=== PATIENT | female | born 1995 | race Caucasian/White ===

== ENCOUNTER 2016-07-13 11:15 | Inpatient (IN) | payer OTHER, MEDICAID ==
[2016-07-13] MEDS: oxyCODONE 5 MG Tab (OWN SUPPLY) PO PRN (18:46)
[2016-07-13] MEDS ORDERED: Bisacodyl 10 MG Supp RECTAL PRN (19:08)
[2016-07-13] MEDS ORDERED: oxyCODONE 5 MG Tab PO ONE (19:32)
[2016-07-13] MEDS ORDERED: ARIPIPRAZOLE 15 MG PO SCH (20:00)
[2016-07-13] MEDS: Docusate Sodium 100 MG Cap PO SCH (20:01)
[2016-07-13] MEDS: WARFARIN 2 MG PO SCH (20:01)
[2016-07-13] MEDS: Sennosides 8.6 MG Tab PO SCH (20:01)
[2016-07-14] MEDS: oxyCODONE 5 MG Tab (OWN SUPPLY) PO PRN ×2 (05:06→23:16)
[2016-07-14] MEDS: Sennosides 8.6 MG Tab PO SCH ×2 (08:55→20:14)
[2016-07-14] MEDS: Sertraline 100 MG Tab (OWN SUPPLY) PO SCH (08:55)
[2016-07-14] MEDS: Docusate Sodium 100 MG Cap PO SCH ×2 (08:56→20:14)
[2016-07-14] MEDS: WARFARIN 2 MG PO SCH (20:14)
[2016-07-14] MEDS: ARIPIPRAZOLE PO SCH (20:14)
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
[2016-07-15 07:34] LABS: PROTHROMBIN TIME 22.4 SEC (10.0-12.8)
[2016-07-15] MEDS: Sennosides 8.6 MG Tab PO SCH ×2 (07:55→21:35)
[2016-07-15] MEDS: Sertraline 100 MG Tab (OWN SUPPLY) PO SCH (07:55)
[2016-07-15] MEDS: Docusate Sodium 100 MG Cap PO SCH ×2 (07:55→21:35)
--- NOTE | 2016-07-15 09:01 | PCM.SN ---
- Free Text/Narrative Note: INR therapeutic, continue the same dose recheck Tuesday. She wanted to go to her cousins but we recommend she watch it over the computer instead due to being on bed rest. She still continues to have pain around the traction pins dressing is now in place. Fransico got her X-ray yesterday and did order some more views that she already had this AM. I notified her she won't get her pin out until at least Tuesday and we are still working on setting up her traction.
[2016-07-15] MEDS: oxyCODONE 5 MG Tab (OWN SUPPLY) PO PRN ×2 (13:56→21:36)
[2016-07-15] MEDS: WARFARIN 2 MG PO SCH (21:34)
[2016-07-15] MEDS: ARIPIPRAZOLE PO SCH (21:35)
[2016-07-16] MEDS: oxyCODONE 5 MG Tab (OWN SUPPLY) PO PRN ×3 (09:18→21:30)
[2016-07-16] MEDS: Sertraline 100 MG Tab (OWN SUPPLY) PO SCH (09:19)
[2016-07-16] MEDS: Sennosides 8.6 MG Tab PO SCH ×2 (09:19→21:34)
[2016-07-16] MEDS: Docusate Sodium 100 MG Cap PO SCH ×2 (09:19→21:34)
[2016-07-16] MEDS: WARFARIN 2 MG PO SCH (21:30)
[2016-07-16] MEDS: ARIPIPRAZOLE PO SCH (21:30)
[2016-07-16] MEDS: Acetaminophen 325 MG Tab PO PRN (21:34)
[2016-07-17] MEDS: Sennosides 8.6 MG Tab PO SCH ×2 (08:46→19:37)
[2016-07-17] MEDS: Sertraline 100 MG Tab (OWN SUPPLY) PO SCH (08:47)
[2016-07-17] MEDS: Docusate Sodium 100 MG Cap PO SCH ×2 (08:47→19:37)
[2016-07-17] MEDS: oxyCODONE 5 MG Tab (OWN SUPPLY) PO PRN ×2 (14:21→19:36)
[2016-07-17] MEDS: WARFARIN 2 MG PO SCH (19:37)
[2016-07-17] MEDS: Acetaminophen 325 MG Tab PO PRN (19:37)
[2016-07-17] MEDS: ARIPIPRAZOLE PO SCH (19:37)
[2016-07-18] MEDS: Docusate Sodium 100 MG Cap PO SCH ×2 (07:54→20:19)
[2016-07-18] MEDS: Sennosides 8.6 MG Tab PO SCH ×2 (07:54→20:19)
[2016-07-18] MEDS: Sertraline 100 MG Tab (OWN SUPPLY) PO SCH (07:55)
[2016-07-18] MEDS: oxyCODONE 5 MG Tab (OWN SUPPLY) PO PRN ×2 (07:55→20:18)
[2016-07-18] MEDS: WARFARIN 2 MG PO SCH (20:18)
[2016-07-18] MEDS: Acetaminophen 325 MG Tab PO PRN (20:19)
[2016-07-18] MEDS: ARIPIPRAZOLE PO SCH (20:20)
[2016-07-19 07:29] LABS: BASOPHILS PERCENT AUTO 0.5 % (0.2-1.2); HEMATOCRIT 35.2 % (33.0-47.0); HEMOGLOBIN 11.2 g/dL (12.0-16.0); LYMPHOCYTES PERCENT AUTO 31.7 % (25.0-50.0); MEAN CORPUSCULAR HEMOGLOBIN 29.3 pg (26.0-32.0); MEAN CORPUSCULAR HGB CONC 31.8 g/dL (32.0-36.0); MEAN CORPUSCULAR VOLUME 92.1 fL (78.0-93.0); MONOCYTES PERCENT AUTO 7.1 % (2.0-11.0); NEUTROPHILS PERCENT AUTO 55.4 % (50.0-80.0); RDW CV 13.4 % (10.0-15.0); RED BLOOD CELL COUNT 3.82 x10^6/uL (4.00-5.50)
[2016-07-19 07:39] LABS: CHLORIDE,CL 104 mmol/L (98-107); CREATININE 0.7 mg/dL (0.55-1.02); EST CRCL DRUG DOSING (CG) 133.98 mL/min; ESTIMATED GFR > 60; GLUCOSE RANDOM 85 mg/dL (74-106)
[2016-07-19 07:41] LABS: INR 2.7 (2.0-3.5); PROTHROMBIN TIME 30.6 SEC (10.0-12.8)
[2016-07-19 07:54] LABS: EOSINOPHILS PERCENT AUTO 5.3 % (0.0-4.0)
[2016-07-19] MEDS: Sennosides 8.6 MG Tab PO SCH ×2 (09:12→21:00)
[2016-07-19] MEDS: Docusate Sodium 100 MG Cap PO SCH ×2 (09:12→21:00)
[2016-07-19] MEDS: Sertraline 100 MG Tab (OWN SUPPLY) PO SCH (09:13)
[2016-07-19] MEDS: oxyCODONE 5 MG Tab (OWN SUPPLY) PO PRN ×3 (09:14→20:55)
[2016-07-19] MEDS: Acetaminophen 325 MG Tab PO PRN ×2 (15:14→20:59)
[2016-07-19] MEDS: ARIPIPRAZOLE PO SCH (20:52)
[2016-07-19] MEDS: WARFARIN 2 MG PO SCH (21:01)
[2016-07-20] MEDS: Sertraline 100 MG Tab (OWN SUPPLY) PO SCH (08:30)
[2016-07-20] MEDS: Docusate Sodium 100 MG Cap PO SCH ×2 (08:30→20:10)
[2016-07-20] MEDS: Sennosides 8.6 MG Tab PO SCH ×2 (08:30→20:08)
[2016-07-20] MEDS: oxyCODONE 5 MG Tab (OWN SUPPLY) PO PRN ×2 (15:09→20:08)
[2016-07-20] MEDS: Acetaminophen 325 MG Tab PO PRN (20:07)
[2016-07-20] MEDS: WARFARIN 2 MG PO SCH (20:08)
[2016-07-20] MEDS: ARIPIPRAZOLE PO SCH (20:09)
[2016-07-21] MEDS: Acetaminophen 325 MG Tab PO PRN ×3 (04:00→20:53)
[2016-07-21] MEDS: oxyCODONE 5 MG Tab (OWN SUPPLY) PO PRN ×3 (04:00→20:52)
[2016-07-21] MEDS: Docusate Sodium 100 MG Cap PO SCH ×2 (11:45→20:54)
[2016-07-21] MEDS: Sennosides 8.6 MG Tab PO SCH ×2 (11:45→20:54)
[2016-07-21] MEDS: Sertraline 100 MG Tab (OWN SUPPLY) PO SCH (11:46)
[2016-07-21] MEDS: ARIPIPRAZOLE PO SCH (20:48)
[2016-07-21] MEDS: WARFARIN 2 MG PO SCH (20:49)
[2016-07-22] MEDS: Sennosides 8.6 MG Tab PO SCH ×2 (09:10→19:55)
[2016-07-22] MEDS: Docusate Sodium 100 MG Cap PO SCH ×2 (09:10→19:55)
[2016-07-22] MEDS: oxyCODONE 5 MG Tab (OWN SUPPLY) PO PRN (09:10)
[2016-07-22] MEDS: Sertraline 100 MG Tab (OWN SUPPLY) PO SCH (09:11)
[2016-07-22] MEDS: Acetaminophen 325 MG Tab PO PRN ×2 (09:12→19:55)
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
[2016-07-22] MEDS: WARFARIN 2 MG PO SCH (19:56)
[2016-07-22] MEDS: ARIPIPRAZOLE 10 MG PO SCH (19:58)
[2016-07-23] MEDS: oxyCODONE 5 MG Tab (OWN SUPPLY) PO PRN ×3 (02:55→20:33)
[2016-07-23] MEDS: Docusate Sodium 100 MG Cap PO SCH ×2 (08:19→20:30)
[2016-07-23] MEDS: Sennosides 8.6 MG Tab PO SCH ×2 (08:19→20:31)
[2016-07-23] MEDS: Sertraline 100 MG Tab (OWN SUPPLY) PO SCH (08:20)
[2016-07-23] MEDS: WARFARIN 2 MG PO SCH (20:32)
[2016-07-23] MEDS: Acetaminophen 325 MG Tab PO PRN (20:36)
[2016-07-23] MEDS: ARIPIPRAZOLE 10 MG PO SCH (20:37)
[2016-07-24] MEDS: Sertraline 100 MG Tab (OWN SUPPLY) PO SCH (07:50)
[2016-07-24] MEDS: Docusate Sodium 100 MG Cap PO SCH ×2 (07:50→19:54)
[2016-07-24] MEDS: Sennosides 8.6 MG Tab PO SCH ×2 (07:50→19:55)
[2016-07-24] MEDS: Acetaminophen 325 MG Tab PO PRN ×2 (12:56→18:53)
[2016-07-24] MEDS: oxyCODONE 5 MG Tab (OWN SUPPLY) PO PRN ×3 (12:56→21:14)
[2016-07-24] MEDS: WARFARIN 2 MG PO SCH (19:56)
[2016-07-24] MEDS: ARIPIPRAZOLE 10 MG PO SCH (19:59)
[2016-07-25] MEDS: Acetaminophen 500 MG Tab PO SCH ×4 (00:10→17:16)
[2016-07-25] MEDS: OXYCODONE 5 MG PO PRN ×3 (06:02→19:58)
[2016-07-25] MEDS: Sertraline 100 MG Tab (OWN SUPPLY) PO SCH (07:58)
[2016-07-25] MEDS: Docusate Sodium 100 MG Cap PO SCH ×2 (07:58→19:56)
[2016-07-25] MEDS: Sennosides 8.6 MG Tab PO SCH ×2 (07:58→19:55)
[2016-07-25] MEDS: ARIPIPRAZOLE 10 MG PO SCH (19:57)
[2016-07-25] MEDS: WARFARIN 2 MG PO SCH (19:59)
[2016-07-26] MEDS: Acetaminophen 500 MG Tab PO SCH ×5 (00:34→23:00)
[2016-07-26 06:47] LABS: BASOPHILS PERCENT AUTO 0.4 % (0.2-1.2); HEMATOCRIT 35.1 % (33.0-47.0); HEMOGLOBIN 11.6 g/dL (12.0-16.0); LYMPHOCYTES PERCENT AUTO 34.4 % (25.0-50.0); MEAN CORPUSCULAR HEMOGLOBIN 29.8 pg (26.0-32.0); MEAN CORPUSCULAR VOLUME 90.2 fL (78.0-93.0); MONOCYTES PERCENT AUTO 7.1 % (2.0-11.0); NEUTROPHILS PERCENT AUTO 51.6 % (50.0-80.0); RDW CV 13.4 % (10.0-15.0); RED BLOOD CELL COUNT 3.89 x10^6/uL (4.00-5.50)
[2016-07-26 06:52] LABS: INR 2.7 (2.0-3.5); PROTHROMBIN TIME 30.3 SEC (10.0-12.8)
[2016-07-26 07:04] LABS: EOSINOPHILS PERCENT AUTO 6.5 % (0.0-4.0)
[2016-07-26] MEDS: Docusate Sodium 100 MG Cap PO SCH ×2 (09:01→20:03)
[2016-07-26] MEDS: Sennosides 8.6 MG Tab PO SCH ×2 (09:01→20:03)
[2016-07-26] MEDS: OXYCODONE 5 MG PO PRN ×3 (09:02→22:59)
[2016-07-26] MEDS: Sertraline 100 MG Tab (OWN SUPPLY) PO SCH (09:02)
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
[2016-07-26] MEDS: ARIPIPRAZOLE 10 MG PO SCH (20:05)
[2016-07-26] MEDS: WARFARIN 2 MG PO SCH (20:06)
[2016-07-27] MEDS: Acetaminophen 500 MG Tab PO SCH ×3 (05:08→17:07)
[2016-07-27] MEDS: OXYCODONE 5 MG PO PRN ×3 (05:09→17:07)
[2016-07-27] MEDS: Sennosides 8.6 MG Tab PO SCH ×2 (08:04→20:40)
[2016-07-27] MEDS: Sertraline 100 MG Tab (OWN SUPPLY) PO SCH (08:04)
[2016-07-27] MEDS: Docusate Sodium 100 MG Cap PO SCH ×2 (08:04→20:40)
[2016-07-27] MEDS: ARIPIPRAZOLE 10 MG PO SCH (20:39)
[2016-07-27] MEDS: WARFARIN 2 MG PO SCH (20:40)
[2016-07-28] MEDS: Acetaminophen 500 MG Tab PO SCH ×4 (01:19→18:05)
[2016-07-28] MEDS: OXYCODONE 5 MG PO PRN ×3 (06:35→18:06)
[2016-07-28] MEDS: Sennosides 8.6 MG Tab PO SCH ×2 (08:06→20:27)
[2016-07-28] MEDS: Docusate Sodium 100 MG Cap PO SCH ×2 (08:06→20:26)
[2016-07-28] MEDS: Sertraline 100 MG Tab (OWN SUPPLY) PO SCH (08:07)
[2016-07-28] MEDS: ARIPIPRAZOLE 10 MG PO SCH (20:18)
[2016-07-28] MEDS: WARFARIN 2 MG PO SCH (20:19)
[2016-07-29] MEDS: Acetaminophen 500 MG Tab PO SCH ×4 (02:42→20:30)
[2016-07-29] MEDS: OXYCODONE 5 MG PO PRN ×3 (06:29→20:31)
[2016-07-29] MEDS: Sertraline 100 MG Tab (OWN SUPPLY) PO SCH (08:24)
[2016-07-29] MEDS: Docusate Sodium 100 MG Cap PO SCH ×2 (08:25→20:33)
[2016-07-29] MEDS: Sennosides 8.6 MG Tab PO SCH ×2 (08:25→20:32)
[2016-07-29] MEDS: ARIPIPRAZOLE 10 MG PO SCH (20:34)
[2016-07-29] MEDS: WARFARIN 2 MG PO SCH (20:34)
[2016-07-29] MEDS ORDERED: Ondansetron 4 MG Tab.DIS PO PRN (23:02)
[2016-07-30] MEDS: OXYCODONE 5 MG PO PRN ×4 (01:12→23:35)
[2016-07-30] MEDS: Acetaminophen 500 MG Tab PO SCH ×4 (01:16→17:54)
--- NOTE | 2016-07-30 08:42 | PCM.SN ---
- Free Text/Narrative Note: S: 21 yo female seen on swingbed. There were concerns of drainage on the lateral portion of the L knee where her pin is placed. The nurses have noticed this for several days and have been doing daily and prn cares and dressing changes. No drainage on the medial portion. Skin around the pin is not red or warm. There is some tenderness. O: There is minimal purulent drainage around the pin on the lateral portion of the knee. There is no erythema or warmth to the skin. Mild tenderness to palpation. Patient does not appear to be in severe pain during palpation. No active bleeding noted. There is no drainage, bleeding, erythema, warmth, or tenderness on the medial portion. A/P: Wound culture and gram stain today. Consider PO antibiotics pending the results of the culture. Continue dressing changes and wound care.
[2016-07-30] MEDS: Sertraline 100 MG Tab (OWN SUPPLY) PO SCH (09:57)
[2016-07-30] MEDS: Sennosides 8.6 MG Tab PO SCH ×2 (09:59→20:18)
[2016-07-30] MEDS: Docusate Sodium 100 MG Cap PO SCH ×2 (09:59→20:18)
[2016-07-30] MEDS: ARIPIPRAZOLE 10 MG PO SCH (20:20)
[2016-07-30] MEDS: WARFARIN 2 MG PO SCH (20:20)
[2016-07-31] MEDS: Acetaminophen 500 MG Tab PO SCH ×4 (01:24→18:10)
[2016-07-31] MEDS: OXYCODONE 5 MG PO PRN ×3 (06:25→20:41)
[2016-07-31] MEDS: Docusate Sodium 100 MG Cap PO SCH ×2 (09:37→20:40)
[2016-07-31] MEDS: Sennosides 8.6 MG Tab PO SCH ×2 (09:37→20:40)
[2016-07-31] MEDS: Sertraline 100 MG Tab (OWN SUPPLY) PO SCH (09:38)
[2016-07-31] MEDS ORDERED: Lidocaine 1% PF 2 ML SDV INJECT ONE (11:25)
[2016-07-31 12:12] LABS: BASOPHILS PERCENT AUTO 0.2 % (0.2-1.2); HEMATOCRIT 34.8 % (33.0-47.0); HEMOGLOBIN 11.5 g/dL (12.0-16.0); LYMPHOCYTES PERCENT AUTO 23.5 % (25.0-50.0); MEAN CORPUSCULAR HEMOGLOBIN 29.8 pg (26.0-32.0); MEAN CORPUSCULAR VOLUME 90.2 fL (78.0-93.0); MONOCYTES PERCENT AUTO 4.5 % (2.0-11.0); NEUTROPHILS PERCENT AUTO 66.1 % (50.0-80.0); RDW CV 13.4 % (10.0-15.0); RED BLOOD CELL COUNT 3.86 x10^6/uL (4.00-5.50)
[2016-07-31 12:24] LABS: EOSINOPHILS PERCENT AUTO 5.7 % (0.0-4.0)
[2016-07-31 12:27] LABS: INR 3.4 (2.0-3.5); PROTHROMBIN TIME 39.2 SEC (10.0-12.8)
[2016-07-31 12:33] LABS: A/G RATIO 0.71; ALBUMIN 2.9 g/dL (3.4-5.0); ALKALINE PHOSPHATASE 172 U/L (46-116); BILIRUBIN TOTAL 0.2 mg/dL (0.2-1.0); C-REACTIVE PROTEIN 1.1 mg/dL (<=0.9); CALCIUM 8.8 mg/dL (8.5-10.1); CHLORIDE,CL 103 mmol/L (98-107); CORRECTED CALCIUM 9.68 mg/dL (8.5-10.1); CREATININE 0.7 mg/dL (0.55-1.02); EST CRCL DRUG DOSING (CG) 133.98 mL/min; ESTIMATED GFR > 60; GLUCOSE RANDOM 109 mg/dL (74-106)
[2016-07-31] MEDS: ARIPIPRAZOLE 10 MG PO SCH (20:40)
--- NOTE | 2016-07-31 23:52 | PN ---
Progress Note for LESLY VAZQUEZ Date: 07/31/2016 Room #: VM.218 SUBJECTIVE: This is a 21-year-old, who began having some more left knee pain in the last 24 to 48 hours. She was assessed yesterday and did have a culture growing Staph aureus from her pin sites, which had more drainage. There is no surrounding redness or warmth, but she is icing her knee currently. The pain is over her kneecap area, it hurts to move it. She has been afebrile. She is very afraid of having any of fluid removed. Otherwise, she is not having any coughing. She had a bowel movement a couple of days ago. She states she got nauseous yesterday, but relates that to starting her menses. OBJECTIVE: Vital Signs: Her temperature is 95.9, pulse 80, blood pressure 116/80, respiratory rate 16, O2 93% on room air. General: She is in no acute distress. Heart: Regular rate and rhythm. S1, S2 without murmur. Lungs: Sounds are clear to auscultation bilaterally without crackles or wheezes. Abdomen: Positive bowel sounds. Soft and nontender. Extremities: Warm and dry. No edema. The pin sites were examined, there is some fibrous yellow drainage, they appeared to be closing in a little better with Xeroform dressing in place. Mental Status: Alert and oriented x3. The rest of her incision is well healed with no redness. Extremities: Her calves are nontender, non-swollen. LABORATORY DATA: Lab work today did show her INR up to 3.4, hemoglobin 11.5, white count normal at 8.2, platelets 13.4. Sodium 140, potassium 3.8, chloride 103, bicarb 28, BUN 12, creatinine 0.7, glucose 109. AST 13, alkaline phosphatase 172, CRP 1.1, mildly elevated, albumin is 2.9. ASSESSMENT AND PLAN: 1. Left acetabular fracture status post ORIF on 07/01/2016. She was nonweightbearing, to followup x-rays on 08/12. She will remain in traction. 2. Left knee pain. Difficult to tell if there is any effusion with her obesity. We did an x-ray today, which does show results pending. She is very hesitant to do a procedure arthrocentesis. Given the fact that her white count is normal and her sed rate improved, we will hold off for now. I will continue to monitor for any signs of infection. The Staph aureus in the wound culture potentially could be a contaminant as she has no signs of infection other than the pain. 3. Nausea. She attributes it to her menses. 4. Deep vein thrombosis prophylaxis, on Coumadin. I will hold the Coumadin tonight especially if she were to need any further procedures. We will repeat an INR next week as planned. We will discuss changing her Coumadin over to 5 mg dosing, but her medications is her own medications, so that is why we used 6 mg dose and taking half a pill. 5. Depression. She is on her Abilify, the plan patient will continue swing bed cares. We will continue to monitor for any signs of infection. MKA: 07/31/2016 13:30:47 MODL: 07/31/2016 23:20:21 /[id number]
[2016-08-01] MEDS: Acetaminophen 500 MG Tab PO SCH ×5 (00:37→23:36)
[2016-08-01] MEDS: Docusate Sodium 100 MG Cap PO SCH ×2 (08:45→20:50)
[2016-08-01] MEDS: Sennosides 8.6 MG Tab PO SCH ×2 (08:45→20:51)
[2016-08-01] MEDS: Sertraline 100 MG Tab (OWN SUPPLY) PO SCH (08:45)
[2016-08-01] MEDS: OXYCODONE 5 MG PO PRN ×3 (08:47→22:48)
[2016-08-01] MEDS: WARFARIN 2 MG PO SCH (20:50)
[2016-08-01] MEDS: ARIPIPRAZOLE 10 MG PO SCH (20:50)
[2016-08-02] MEDS: Acetaminophen 500 MG Tab PO SCH ×4 (06:16→23:59)
[2016-08-02] MEDS: Sennosides 8.6 MG Tab PO SCH ×2 (10:33→19:45)
[2016-08-02] MEDS: Docusate Sodium 100 MG Cap PO SCH ×2 (10:33→19:45)
[2016-08-02] MEDS: Sertraline 100 MG Tab (OWN SUPPLY) PO SCH (10:34)
[2016-08-02] MEDS: ARIPIPRAZOLE 10 MG PO SCH (19:45)
[2016-08-02] MEDS: WARFARIN 2 MG PO SCH (19:45)
[2016-08-03] MEDS: Acetaminophen 500 MG Tab PO SCH ×4 (06:13→23:05)
[2016-08-03] MEDS: Sennosides 8.6 MG Tab PO SCH ×2 (08:25→19:53)
[2016-08-03] MEDS: Sertraline 100 MG Tab (OWN SUPPLY) PO SCH (08:26)
[2016-08-03] MEDS: Docusate Sodium 100 MG Cap PO SCH ×2 (08:26→19:53)
[2016-08-03] MEDS: ARIPIPRAZOLE 10 MG PO SCH (19:53)
[2016-08-03] MEDS: OXYCODONE 5 MG PO PRN (19:54)
[2016-08-03] MEDS: WARFARIN 2 MG PO SCH (19:54)
[2016-08-04] MEDS: Acetaminophen 500 MG Tab PO SCH ×4 (06:10→23:37)
[2016-08-04] MEDS: Docusate Sodium 100 MG Cap PO SCH ×2 (08:56→20:21)
[2016-08-04] MEDS: Sennosides 8.6 MG Tab PO SCH ×2 (08:56→20:20)
[2016-08-04] MEDS: Sertraline 100 MG Tab (OWN SUPPLY) PO SCH (08:57)
[2016-08-04] MEDS: WARFARIN 2 MG PO SCH (20:21)
[2016-08-04] MEDS: ARIPIPRAZOLE 10 MG PO SCH (20:22)
[2016-08-05] MEDS: OXYCODONE 5 MG PO PRN ×2 (01:01→15:34)
[2016-08-05] MEDS: Acetaminophen 500 MG Tab PO SCH ×3 (05:03→17:55)
[2016-08-05] MEDS: Docusate Sodium 100 MG Cap PO SCH ×2 (09:06→20:15)
[2016-08-05] MEDS: Sennosides 8.6 MG Tab PO SCH ×2 (09:06→20:15)
[2016-08-05] MEDS: Sertraline 100 MG Tab (OWN SUPPLY) PO SCH (09:07)
[2016-08-05] MEDS: Mupirocin Oint 22 GM Tube TOP SCH (17:54)
[2016-08-05] MEDS ORDERED: WARFARIN 2 MG PO SCH (20:00)
[2016-08-05] MEDS: ARIPIPRAZOLE 10 MG PO SCH (20:16)
[2016-08-06] MEDS: Acetaminophen 500 MG Tab PO SCH ×4 (00:10→18:01)
[2016-08-06] MEDS: OXYCODONE 5 MG PO PRN ×2 (02:43→08:22)
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
[2016-08-06 06:39] LABS: BASOPHILS PERCENT AUTO 0.4 % (0.2-1.2); EOSINOPHILS PERCENT AUTO 4.3 % (0.0-4.0); HEMATOCRIT 36.6 % (33.0-47.0); HEMOGLOBIN 11.9 g/dL (12.0-16.0); LYMPHOCYTES PERCENT AUTO 35.6 % (25.0-50.0); MEAN CORPUSCULAR HEMOGLOBIN 28.9 pg (26.0-32.0); MEAN CORPUSCULAR HGB CONC 32.5 g/dL (32.0-36.0); MEAN CORPUSCULAR VOLUME 88.8 fL (78.0-93.0); MONOCYTES PERCENT AUTO 6.9 % (2.0-11.0); NEUTROPHILS PERCENT AUTO 52.8 % (50.0-80.0); RDW CV 13.6 % (10.0-15.0); RED BLOOD CELL COUNT 4.12 x10^6/uL (4.00-5.50)
[2016-08-06 06:51] LABS: CHLORIDE,CL 104 mmol/L (98-107); CREATININE 0.7 mg/dL (0.55-1.02); EST CRCL DRUG DOSING (CG) 133.98 mL/min; ESTIMATED GFR > 60; GLUCOSE RANDOM 82 mg/dL (74-106)
[2016-08-06 06:52] LABS: INR 1.4 (2.0-3.5); PROTHROMBIN TIME 15.9 SEC (10.0-12.8)
[2016-08-06] MEDS: Sertraline 100 MG Tab (OWN SUPPLY) PO SCH (08:20)
[2016-08-06] MEDS: Sennosides 8.6 MG Tab PO SCH ×2 (08:20→19:52)
[2016-08-06] MEDS: Docusate Sodium 100 MG Cap PO SCH ×2 (08:20→19:52)
[2016-08-06] MEDS: Enoxaparin 40 MG/0.4 ML Syringe (OWN SUPPLY) SUBCUT SCH (11:32)
--- NOTE | 2016-08-06 13:48 | PN ---
Progress Note for LESLY VAZQUEZ Date: 08/06/2016 Room #: VM.218 Her left above the knee traction pin site was cultured on the , official report did come back now Staph aureus not MRSA. I did discuss with her orthopedic surgeon group yesterday about some increased drainage and redness, she has been afebrile. Lab work today has a normal white count. Her sedimentation rate is down to 52. The orthopedic surgeon Dr. Gruber was notified and recommendations were called back to me today to remove the pin. The pin area was loosened up with a pliers that was cleaned thoroughly with alcohol, that was nowhere near the wound, just over the screw. After the area was loosened, the pin was slid out to the point where we could thoroughly clean it with alcohol initially to remove the debris and then multiple chlorhexidine swabs were used over the area and over the wound. I then loosened up the other side, the lateral side and pulled the pins through, it got hung up to just at one point, it did not appear to be overly painful for the patient and then I was able to remove it all the way. She had great relief from this as the pin areas had been rubbing her skin quite raw. This had been going on the whole time, there is no purulent drainage from the wounds, they will be cleansed up and Bactroban has been applied because the tube was obtained when we were concerned it was MRSA and Optifoam will be used to cover the wound with dressing changes to take place daily or more frequently if needed for saturation. The patient will need a followup INR test on Tuesday. At this point, I will do 1 more sedimentation marker and a CBC because she will be on Lovenox through the weekend, but I will hold off that after that on further sed rates as clinically she is doing well. She will have a pelvic x-ray next to decide on further weightbearing. We discussed in detail that just because the pin is out she is not allowed to get out of bed and she expressed understanding of that. Traction pin removal today, which took place without complications. MKA: 08/06/2016 13:01:45 MODL: 08/06/2016 13:39:17 /[id number]
[2016-08-06] MEDS: Mupirocin Oint 22 GM Tube TOP SCH (14:23)
[2016-08-06] MEDS: WARFARIN 2 MG PO SCH (19:52)
[2016-08-06] MEDS: ARIPIPRAZOLE 10 MG PO SCH (19:53)
[2016-08-06] MEDS ORDERED: WARFARIN 2 MG PO SCH (20:00)
[2016-08-07] MEDS: Acetaminophen 500 MG Tab PO SCH ×5 (01:10→17:26)
[2016-08-07] MEDS: Docusate Sodium 100 MG Cap PO SCH ×2 (07:36→19:14)
[2016-08-07] MEDS: Sennosides 8.6 MG Tab PO SCH ×2 (07:37→19:14)
[2016-08-07] MEDS: Sertraline 100 MG Tab (OWN SUPPLY) PO SCH (07:47)
[2016-08-07] MEDS: Enoxaparin 40 MG/0.4 ML Syringe (OWN SUPPLY) SUBCUT SCH (11:57)
[2016-08-07] MEDS: Mupirocin Oint 22 GM Tube TOP SCH ×2 (11:58→13:35)
[2016-08-07] MEDS: WARFARIN 2 MG PO SCH (19:14)
[2016-08-07] MEDS: ARIPIPRAZOLE 10 MG PO SCH (19:14)
[2016-08-08] MEDS: Acetaminophen 500 MG Tab PO SCH ×4 (01:22→18:19)
[2016-08-08] MEDS: Sertraline 100 MG Tab (OWN SUPPLY) PO SCH (08:13)
[2016-08-08] MEDS: Docusate Sodium 100 MG Cap PO SCH ×2 (08:13→19:55)
[2016-08-08] MEDS: Sennosides 8.6 MG Tab PO SCH ×2 (08:13→19:55)
[2016-08-08] MEDS: Enoxaparin 40 MG/0.4 ML Syringe (OWN SUPPLY) SUBCUT SCH (12:15)
[2016-08-08] MEDS: Mupirocin Oint 22 GM Tube TOP SCH (12:15)
[2016-08-08] MEDS: WARFARIN 2 MG PO SCH (19:54)
[2016-08-08] MEDS: ARIPIPRAZOLE 10 MG PO SCH (19:54)
[2016-08-09] MEDS: Acetaminophen 500 MG Tab PO SCH ×3 (06:01→23:30)
[2016-08-09 06:51] LABS: BASOPHILS PERCENT AUTO 0.5 % (0.2-1.2); EOSINOPHILS PERCENT AUTO 4.1 % (0.0-4.0); HEMATOCRIT 36.4 % (33.0-47.0); HEMOGLOBIN 11.7 g/dL (12.0-16.0); LYMPHOCYTES PERCENT AUTO 31.9 % (25.0-50.0); MEAN CORPUSCULAR HEMOGLOBIN 28.6 pg (26.0-32.0); MEAN CORPUSCULAR HGB CONC 32.1 g/dL (32.0-36.0); MONOCYTES PERCENT AUTO 7.3 % (2.0-11.0); NEUTROPHILS PERCENT AUTO 56.2 % (50.0-80.0); RDW CV 13.5 % (10.0-15.0); RED BLOOD CELL COUNT 4.09 x10^6/uL (4.00-5.50)
[2016-08-09 07:05] LABS: INR 2.2 (2.0-3.5); PROTHROMBIN TIME 25.2 SEC (10.0-12.8)
[2016-08-09] MEDS: Sertraline 100 MG Tab (OWN SUPPLY) PO SCH (07:39)
[2016-08-09] MEDS: Docusate Sodium 100 MG Cap PO SCH ×2 (07:40→20:23)
[2016-08-09] MEDS: Sennosides 8.6 MG Tab PO SCH ×2 (07:40→20:23)
[2016-08-09] MEDS: Mupirocin Oint 22 GM Tube TOP SCH (13:28)
[2016-08-09] MEDS ORDERED: Warfarin 2 MG Tab PO SCH (20:00)
[2016-08-09] MEDS: ARIPIPRAZOLE 10 MG PO SCH (20:22)
[2016-08-09] MEDS: Warfarin 2 MG Tab PO SCH (20:22)
[2016-08-10] MEDS: Acetaminophen 500 MG Tab PO SCH ×4 (02:38→17:34)
[2016-08-10] MEDS: Docusate Sodium 100 MG Cap PO SCH ×2 (07:42→19:22)
[2016-08-10] MEDS: Sertraline 100 MG Tab (OWN SUPPLY) PO SCH (07:43)
[2016-08-10] MEDS: Sennosides 8.6 MG Tab PO SCH ×2 (07:43→19:22)
[2016-08-10] MEDS: Mupirocin Oint 22 GM Tube TOP SCH (14:03)
[2016-08-10] MEDS: Warfarin 2 MG Tab PO SCH (19:23)
[2016-08-10] MEDS: ARIPIPRAZOLE 10 MG PO SCH (19:23)
[2016-08-11] MEDS: Acetaminophen 500 MG Tab PO SCH ×4 (01:13→17:34)
[2016-08-11] MEDS: Docusate Sodium 100 MG Cap PO SCH ×2 (07:31→20:21)
[2016-08-11] MEDS: Sennosides 8.6 MG Tab PO SCH ×2 (07:31→20:21)
[2016-08-11] MEDS: Sertraline 100 MG Tab (OWN SUPPLY) PO SCH (07:56)
[2016-08-11] MEDS: Mupirocin Oint 22 GM Tube TOP SCH (14:38)
[2016-08-11] MEDS: ARIPIPRAZOLE 10 MG PO SCH (20:20)
[2016-08-11] MEDS: Warfarin 2 MG Tab PO SCH (20:21)
[2016-08-12] MEDS: Acetaminophen 500 MG Tab PO SCH ×4 (02:08→17:10)
[2016-08-12] MEDS: Sennosides 8.6 MG Tab PO SCH ×2 (07:44→20:16)
[2016-08-12] MEDS: Sertraline 100 MG Tab (OWN SUPPLY) PO SCH (07:44)
[2016-08-12] MEDS: Docusate Sodium 100 MG Cap PO SCH ×2 (07:44→20:16)
[2016-08-12] MEDS: Mupirocin Oint 22 GM Tube TOP SCH (13:29)
[2016-08-12] MEDS: ARIPIPRAZOLE 10 MG PO SCH (20:15)
[2016-08-12] MEDS: Warfarin 2 MG Tab PO SCH (20:15)
[2016-08-13] MEDS: Acetaminophen 500 MG Tab PO SCH ×4 (01:04→17:52)
[2016-08-13] MEDS: Docusate Sodium 100 MG Cap PO SCH ×2 (07:57→20:23)
[2016-08-13] MEDS: Sennosides 8.6 MG Tab PO SCH ×2 (07:57→20:23)
[2016-08-13] MEDS: Sertraline 100 MG Tab (OWN SUPPLY) PO SCH (07:57)
[2016-08-13] MEDS: Mupirocin Oint 22 GM Tube TOP SCH (13:01)
[2016-08-13] MEDS: Warfarin 2 MG Tab PO SCH (20:23)
[2016-08-13] MEDS: ARIPIPRAZOLE 10 MG PO SCH (20:23)
[2016-08-13] MEDS ORDERED: Sennosides 8.6 MG Tab PO PRN (20:55)
[2016-08-13] MEDS ORDERED: Docusate Sodium 100 MG Cap PO PRN (21:01)
[2016-08-14] MEDS: Sertraline 100 MG Tab (OWN SUPPLY) PO SCH (08:41)
[2016-08-14] MEDS: Mupirocin Oint 22 GM Tube TOP SCH ×2 (09:45→13:49)
[2016-08-14] MEDS: Warfarin 2 MG Tab PO SCH (19:59)
[2016-08-14] MEDS: ARIPIPRAZOLE 10 MG PO SCH (19:59)
[2016-08-15] MEDS: Sertraline 100 MG Tab (OWN SUPPLY) PO SCH (09:21)
[2016-08-15] MEDS: Mupirocin Oint 22 GM Tube TOP SCH ×2 (09:22→13:54)
[2016-08-15] MEDS: Warfarin 2 MG Tab PO SCH (20:07)
[2016-08-15] MEDS: ARIPIPRAZOLE 10 MG PO SCH (20:08)
[2016-08-16 07:30] LABS: INR 2.5 (2.0-3.5); PROTHROMBIN TIME 28.5 SEC (10.0-12.8)
[2016-08-16] MEDS: Sertraline 100 MG Tab (OWN SUPPLY) PO SCH (08:05)
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
[2016-08-16] MEDS: Mupirocin Oint 22 GM Tube TOP SCH (13:56)
[2016-08-16] MEDS: ARIPIPRAZOLE 10 MG PO SCH (19:58)
[2016-08-16] MEDS: Warfarin 2 MG Tab PO SCH (19:59)
[2016-08-17] MEDS: Sertraline 100 MG Tab (OWN SUPPLY) PO SCH (07:52)
[2016-08-17] MEDS: Mupirocin Oint 22 GM Tube TOP SCH (14:38)
[2016-08-17] MEDS: ARIPIPRAZOLE 10 MG PO SCH (20:29)
[2016-08-17] MEDS: Warfarin 2 MG Tab PO SCH (20:29)
[2016-08-18] MEDS: Sertraline 100 MG Tab (OWN SUPPLY) PO SCH (09:14)
[2016-08-18] MEDS: Mupirocin Oint 22 GM Tube TOP SCH (14:47)
[2016-08-18] MEDS: ARIPIPRAZOLE 10 MG PO SCH (19:31)
[2016-08-18] MEDS: Warfarin 2 MG Tab PO SCH (19:31)
[2016-08-19] MEDS: Sertraline 100 MG Tab (OWN SUPPLY) PO SCH (08:26)
[2016-08-19] MEDS: ARIPIPRAZOLE 10 MG PO SCH (19:56)
[2016-08-19] MEDS: Mupirocin Oint 22 GM Tube TOP SCH (19:56)
[2016-08-19] MEDS: Warfarin 2 MG Tab PO SCH (19:57)
[2016-08-20] MEDS: Sertraline 100 MG Tab (OWN SUPPLY) PO SCH (08:44)
[2016-08-20] MEDS: Mupirocin Oint 22 GM Tube TOP SCH ×2 (10:43→13:00)
[2016-08-20] MEDS: ARIPIPRAZOLE 10 MG PO SCH (20:56)
[2016-08-20] MEDS: Warfarin 2 MG Tab PO SCH (20:56)
[2016-08-20] MEDS: Acetaminophen 500 MG Tab PO PRN (23:56)
[2016-08-21] MEDS: Sertraline 100 MG Tab (OWN SUPPLY) PO SCH (08:25)
[2016-08-21] MEDS: Mupirocin Oint 22 GM Tube TOP SCH ×2 (10:50→13:01)
[2016-08-21] MEDS: Warfarin 2 MG Tab PO SCH (19:35)
[2016-08-21] MEDS: ARIPIPRAZOLE 10 MG PO SCH (19:35)
[2016-08-22] MEDS: Sertraline 100 MG Tab (OWN SUPPLY) PO SCH (07:12)
[2016-08-22] MEDS: Mupirocin Oint 22 GM Tube TOP SCH ×2 (12:36→13:02)
[2016-08-22] MEDS: Warfarin 2 MG Tab PO SCH (19:47)
[2016-08-22] MEDS: ARIPIPRAZOLE 10 MG PO SCH (19:47)
[2016-08-23] MEDS: Acetaminophen 500 MG Tab PO PRN ×2 (02:18→23:23)
[2016-08-23 07:38] LABS: INR 2.3 (2.0-3.5); PROTHROMBIN TIME 26.5 SEC (10.0-12.8)
--- NOTE | 2016-08-23 08:04 | PCM.SN ---
- Free Text/Narrative Note: Andres states she is doing well, she was able to shower over the weekend. She is not allowed to do weight bearing yet awaiting surgeon recommendations for her next x-ray and follow up. INR therapeutic at 2.3 will continue coumadin until weight bearing.
[2016-08-23] MEDS: Sertraline 100 MG Tab (OWN SUPPLY) PO SCH (08:39)
[2016-08-23] MEDS: Mupirocin Oint 22 GM Tube TOP SCH (16:21)
[2016-08-23] MEDS: Warfarin 2 MG Tab PO SCH (20:24)
[2016-08-23] MEDS: ARIPIPRAZOLE 10 MG PO SCH (20:24)
[2016-08-24] MEDS: Sertraline 100 MG Tab (OWN SUPPLY) PO SCH (08:16)
[2016-08-24] MEDS: ARIPIPRAZOLE 10 MG PO SCH (20:20)
[2016-08-24] MEDS: Warfarin 2 MG Tab PO SCH (20:20)
[2016-08-25] MEDS: Sertraline 100 MG Tab (OWN SUPPLY) PO SCH (09:56)
[2016-08-25] MEDS: Warfarin 2 MG Tab PO SCH (20:08)
[2016-08-25] MEDS: ARIPIPRAZOLE 10 MG PO SCH (20:08)
[2016-08-25] MEDS: Acetaminophen 500 MG Tab PO PRN (23:53)
[2016-08-26] MEDS: Sertraline 100 MG Tab (OWN SUPPLY) PO SCH (08:56)
[2016-08-26] MEDS: Acetaminophen 500 MG Tab PO PRN (14:18)
[2016-08-26] MEDS: ARIPIPRAZOLE 10 MG PO SCH (20:29)
[2016-08-26] MEDS: Warfarin 2 MG Tab PO SCH (20:29)
[2016-08-27] MEDS: Sertraline 100 MG Tab (OWN SUPPLY) PO SCH (07:55)
[2016-08-27] MEDS: ARIPIPRAZOLE 10 MG PO SCH (19:40)
[2016-08-27] MEDS: Warfarin 2 MG Tab PO SCH (19:41)
[2016-08-27] MEDS: Acetaminophen 500 MG Tab PO PRN (21:45)
[2016-08-28] MEDS: Acetaminophen 500 MG Tab PO PRN ×2 (08:26→21:06)
[2016-08-28] MEDS: Sertraline 100 MG Tab (OWN SUPPLY) PO SCH (08:26)
[2016-08-28] MEDS: ARIPIPRAZOLE 10 MG PO SCH (21:08)
[2016-08-28] MEDS: Warfarin 2 MG Tab PO SCH (21:08)
[2016-08-29] MEDS: Sertraline 100 MG Tab (OWN SUPPLY) PO SCH (08:24)
[2016-08-29] MEDS: ARIPIPRAZOLE 10 MG PO SCH (20:03)
[2016-08-29] MEDS: Warfarin 2 MG Tab PO SCH (20:03)
[2016-08-29] MEDS: Acetaminophen 500 MG Tab PO PRN (22:01)
[2016-08-30] MEDS: Sertraline 100 MG Tab (OWN SUPPLY) PO SCH (08:27)
--- NOTE | 2016-08-30 08:39 | PCM.SN ---
- Free Text/Narrative Note: Recheck X-ray on 09/10 per ortho, patient able to be up in the chair now with the slide board. She is sleeping this AM. Has not been using pain pills, bowels working ok. Nursing have no concerns. INR check on 09/01.
[2016-08-30] MEDS: ARIPIPRAZOLE 10 MG PO SCH (20:15)
[2016-08-30] MEDS: Warfarin 2 MG Tab PO SCH (20:15)
[2016-08-30] MEDS: Acetaminophen 500 MG Tab PO PRN (23:26)
[2016-08-31] MEDS: Sertraline 100 MG Tab (OWN SUPPLY) PO SCH (08:44)
[2016-08-31] MEDS: Acetaminophen 500 MG Tab PO PRN (10:46)
[2016-08-31] MEDS: ARIPIPRAZOLE 10 MG PO SCH (19:49)
[2016-08-31] MEDS: Warfarin 2 MG Tab PO SCH (19:50)
[2016-09-01 07:12] LABS: INR 2.7 (2.0-3.5); PROTHROMBIN TIME 30.7 SEC (10.0-12.8)
[2016-09-01] MEDS: Sertraline 100 MG Tab (OWN SUPPLY) PO SCH (09:27)
[2016-09-01] MEDS: Acetaminophen 500 MG Tab PO PRN (12:27)
[2016-09-01] MEDS: ARIPIPRAZOLE 10 MG PO SCH (19:29)
[2016-09-02] MEDS: Sertraline 100 MG Tab (OWN SUPPLY) PO SCH (08:35)
[2016-09-02] MEDS: ARIPIPRAZOLE 10 MG PO SCH (19:39)
[2016-09-03] MEDS: Sertraline 100 MG Tab (OWN SUPPLY) PO SCH (08:48)
[2016-09-03] MEDS ORDERED: Calcium Carbonate 750 MG Tab.Chew PO PRN (12:47)
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
[2016-09-03 13:45] LABS: BILIRUBIN,URINE NEGATIVE (NEGATIVE); GLUCOSE,URINE NEGATIVE (NEGATIVE); KETONES,URINE NEGATIVE (NEGATIVE); LEUKOCYTE ESTERASE,URINE SMALL (NEGATIVE); NITRITE,URINE NEGATIVE (NEGATIVE); OCCULT BLOOD,URINE TRACE-INTACT (NEGATIVE); PROTEIN,URINE NEGATIVE (NEGATIVE); UROBILINOGEN,URINE 0.2 EU/dL (0.2)
[2016-09-03 13:54] LABS: APPEARANCE,URINE TURBID (CLEAR)
[2016-09-03 13:55] LABS: BACTERIA,URINE MODERATE /HPF (NEGATIVE); MUCUS,URINE FEW /LPF (NEGATIVE); RBC,URINE 0-5 /HPF (NOT SEEN); WBC,URINE 30-40 /HPF (NOT SEEN)
[2016-09-03] MEDS: Nitrofurantoin Monohydrate/Macrocrystalline 100 MG Cap PO SCH ×2 (16:57→22:34)
[2016-09-03] MEDS: ARIPIPRAZOLE 10 MG PO SCH (22:23)
[2016-09-03] MEDS: Acetaminophen 500 MG Tab PO PRN (22:25)
[2016-09-04] MEDS: Omeprazole 20 MG Cap.CR PO SCH (09:16)
[2016-09-04] MEDS: Nitrofurantoin Monohydrate/Macrocrystalline 100 MG Cap PO SCH ×2 (09:16→20:17)
[2016-09-04] MEDS: Sertraline 100 MG Tab (OWN SUPPLY) PO SCH (09:16)
[2016-09-04] MEDS: ARIPIPRAZOLE 10 MG PO SCH (20:13)
[2016-09-05] MEDS: Sertraline 100 MG Tab (OWN SUPPLY) PO SCH (09:25)
[2016-09-05] MEDS: Nitrofurantoin Monohydrate/Macrocrystalline 100 MG Cap PO SCH ×2 (09:25→19:23)
[2016-09-05] MEDS: Omeprazole 20 MG Cap.CR PO SCH (09:25)
[2016-09-05] MEDS: ARIPIPRAZOLE 10 MG PO SCH (19:23)
[2016-09-06] MEDS: Omeprazole 20 MG Cap.CR PO SCH (08:19)
[2016-09-06] MEDS: Sertraline 100 MG Tab (OWN SUPPLY) PO SCH (08:20)
[2016-09-06] MEDS: Nitrofurantoin Monohydrate/Macrocrystalline 100 MG Cap PO SCH ×2 (08:20→19:57)
[2016-09-06] MEDS: ARIPIPRAZOLE 10 MG PO SCH (19:57)
[2016-09-07] MEDS: Sertraline 100 MG Tab (OWN SUPPLY) PO SCH (08:48)
[2016-09-07] MEDS: Omeprazole 20 MG Cap.CR PO SCH (08:53)
[2016-09-07] MEDS: Nitrofurantoin Monohydrate/Macrocrystalline 100 MG Cap PO SCH ×2 (08:53→20:12)
[2016-09-07] MEDS: ARIPIPRAZOLE 10 MG PO SCH (20:09)
[2016-09-08 07:29] LABS: INR 2.7 (2.0-3.5)
[2016-09-08] MEDS: Sertraline 100 MG Tab (OWN SUPPLY) PO SCH (10:12)
[2016-09-08] MEDS: Nitrofurantoin Monohydrate/Macrocrystalline 100 MG Cap PO SCH ×2 (10:15→19:11)
[2016-09-08] MEDS: Omeprazole 20 MG Cap.CR PO SCH (10:15)
[2016-09-08] MEDS: Acetaminophen 500 MG Tab PO PRN (14:12)
[2016-09-08] MEDS: ARIPIPRAZOLE 10 MG PO SCH (19:12)
[2016-09-09] MEDS: Sertraline 100 MG Tab (OWN SUPPLY) PO SCH (08:09)
[2016-09-09] MEDS: Nitrofurantoin Monohydrate/Macrocrystalline 100 MG Cap PO SCH ×3 (08:09→19:30)
[2016-09-09] MEDS: Omeprazole 20 MG Cap.CR PO SCH (08:11)
[2016-09-09] MEDS: ARIPIPRAZOLE 10 MG PO SCH ×2 (18:44→19:29)
[2016-09-09] MEDS: Acetaminophen 500 MG Tab PO PRN (23:39)
[2016-09-10] MEDS: Sertraline 100 MG Tab (OWN SUPPLY) PO SCH (07:20)
[2016-09-10] MEDS: Nitrofurantoin Monohydrate/Macrocrystalline 100 MG Cap PO SCH ×2 (07:20→20:49)
[2016-09-10] MEDS: Omeprazole 20 MG Cap.CR PO SCH (07:20)
[2016-09-10] MEDS: ARIPIPRAZOLE 10 MG PO SCH (20:49)
[2016-09-11] MEDS: Sertraline 100 MG Tab (OWN SUPPLY) PO SCH (10:06)
[2016-09-11] MEDS: Omeprazole 20 MG Cap.CR PO SCH (10:06)
[2016-09-11] MEDS: Acetaminophen 500 MG Tab PO PRN ×2 (10:07→20:04)
[2016-09-11] MEDS: ARIPIPRAZOLE 10 MG PO SCH (20:05)
[2016-09-12] MEDS: Omeprazole 20 MG Cap.CR PO SCH (10:44)
[2016-09-12] MEDS: Sertraline 100 MG Tab (OWN SUPPLY) PO SCH (10:44)
[2016-09-12] MEDS: ARIPIPRAZOLE 10 MG PO SCH (19:47)
[2016-09-13] MEDS: Sertraline 100 MG Tab (OWN SUPPLY) PO SCH (08:28)
[2016-09-13] MEDS: Omeprazole 20 MG Cap.CR PO SCH (08:28)
[2016-09-13] MEDS: ARIPIPRAZOLE 10 MG PO SCH (20:02)
[2016-09-13] MEDS: Acetaminophen 500 MG Tab PO PRN (23:04)
[2016-09-14] MEDS: Sertraline 100 MG Tab (OWN SUPPLY) PO SCH (08:44)
[2016-09-14] MEDS: Acetaminophen 500 MG Tab PO PRN (08:45)
[2016-09-14] MEDS: Omeprazole 20 MG Cap.CR PO SCH (08:45)
[2016-09-14] MEDS: ARIPIPRAZOLE 10 MG PO SCH (20:41)
[2016-09-15] MEDS: Omeprazole 20 MG Cap.CR PO SCH (08:30)
[2016-09-15] MEDS: Sertraline 100 MG Tab (OWN SUPPLY) PO SCH (08:30)
[2016-09-15] MEDS: ARIPIPRAZOLE 10 MG PO SCH (19:27)
[2016-09-15] MEDS: Acetaminophen 500 MG Tab PO PRN (19:28)
[2016-09-16] MEDS: Sertraline 100 MG Tab (OWN SUPPLY) PO SCH (08:57)
[2016-09-16] MEDS: Omeprazole 20 MG Cap.CR PO SCH (08:57)
[2016-09-16] MEDS: ARIPIPRAZOLE 10 MG PO SCH (21:12)
[2016-09-17] MEDS: Omeprazole 20 MG Cap.CR PO SCH (08:47)
[2016-09-17] MEDS: Sertraline 100 MG Tab (OWN SUPPLY) PO SCH (08:47)
[2016-09-17] MEDS: ARIPIPRAZOLE 10 MG PO SCH (22:38)
[2016-09-17] MEDS: Acetaminophen 500 MG Tab PO PRN (22:38)
[2016-09-18] MEDS: Omeprazole 20 MG Cap.CR PO SCH (12:02)
[2016-09-18] MEDS: Sertraline 100 MG Tab (OWN SUPPLY) PO SCH (12:03)
[2016-09-18] MEDS: ARIPIPRAZOLE 10 MG PO SCH (19:58)
[2016-09-19] MEDS: Sertraline 100 MG Tab (OWN SUPPLY) PO SCH (08:34)
[2016-09-19] MEDS: Omeprazole 20 MG Cap.CR PO SCH (08:34)
[2016-09-19] MEDS: ARIPIPRAZOLE 10 MG PO SCH (19:59)
[2016-09-20] MEDS: Sertraline 100 MG Tab (OWN SUPPLY) PO SCH (09:21)
[2016-09-20] MEDS: Omeprazole 20 MG Cap.CR PO SCH (09:21)
[2016-09-20 09:22] LABS: INR 2.1 (2.0-3.5); PROTHROMBIN TIME 24.1 SEC (10.0-12.8)
--- NOTE | 2016-09-20 12:43 | PCM.SN ---
- Free Text/Narrative Note: Surgeon reviewed her CT from Tuesday and I was told recommended another 4 weeks no walking. 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 INR check today was ok, continue coumadin until full weight bearing.
[2016-09-20] MEDS: ARIPIPRAZOLE 10 MG PO SCH (20:17)
[2016-09-21] MEDS: Sertraline 100 MG Tab (OWN SUPPLY) PO SCH (08:32)
[2016-09-21] MEDS: Omeprazole 20 MG Cap.CR PO SCH (08:32)
[2016-09-21] MEDS: Calcium Carbonate/Vitamin D3 1250 MG-200 Unit Tab PO SCH ×2 (11:29→17:26)
[2016-09-21] MEDS: Cholecalciferol (Vitamin D3) 1,000 Unit Tab PO SCH (11:29)
--- NOTE | 2016-09-21 11:33 | PCM.SN ---
- Free Text/Narrative Note: Discussed with Dr. Gruber today about her fracture not healing. We will try to get her on Forteo for at least [address] in 3-4 weeks as planned by him. She will not increase her weight bearing at this point. I also started her on calcium and D but she is drinking mild regularly and 2-3 pops per day. Nutrition will visit with her about her diet. We will continue coumadin also due to her obesity and limited weight bearing. I ordered lab work today in preparation of starting Forteo and a voucher will be given to the pharmacist to fill that at [facility] pharmacy.
[2016-09-21 11:49] LABS: BASOPHILS PERCENT AUTO 0.4 % (0.2-1.2); EOSINOPHILS PERCENT AUTO 3.2 % (0.0-4.0); HEMATOCRIT 37.6 % (33.0-47.0); LYMPHOCYTES PERCENT AUTO 23.4 % (25.0-50.0); MEAN CORPUSCULAR HEMOGLOBIN 27.5 pg (26.0-32.0); MEAN CORPUSCULAR HGB CONC 31.9 g/dL (32.0-36.0); MEAN CORPUSCULAR VOLUME 86.2 fL (78.0-93.0); MONOCYTES PERCENT AUTO 7.3 % (2.0-11.0); NEUTROPHILS PERCENT AUTO 65.7 % (50.0-80.0); RDW CV 14.8 % (10.0-15.0); RED BLOOD CELL COUNT 4.36 x10^6/uL (4.00-5.50)
[2016-09-21 12:04] LABS: CALCIUM 8.6 mg/dL (8.5-10.1); CHLORIDE,CL 105 mmol/L (98-107); CREATININE 0.8 mg/dL (0.55-1.02); EST CRCL DRUG DOSING (CG) 117.23 mL/min; ESTIMATED GFR > 60; GLUCOSE RANDOM 104 mg/dL (74-106)
[2016-09-21] MEDS: ARIPIPRAZOLE 10 MG PO SCH (19:49)
[2016-09-21] MEDS: Acetaminophen 500 MG Tab PO PRN (19:50)
[2016-09-22] MEDS: Sertraline 100 MG Tab (OWN SUPPLY) PO SCH (08:00)
[2016-09-22] MEDS: Cholecalciferol (Vitamin D3) 1,000 Unit Tab PO SCH (08:00)
[2016-09-22] MEDS: Calcium Carbonate/Vitamin D3 1250 MG-200 Unit Tab PO SCH ×2 (08:00→17:20)
[2016-09-22] MEDS: Omeprazole 20 MG Cap.CR PO SCH (08:00)
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
[2016-09-22] MEDS: ARIPIPRAZOLE 10 MG PO SCH (20:43)
[2016-09-23] MEDS: Omeprazole 20 MG Cap.CR PO SCH (08:16)
[2016-09-23] MEDS: Sertraline 100 MG Tab (OWN SUPPLY) PO SCH (08:16)
[2016-09-23] MEDS: Cholecalciferol (Vitamin D3) 1,000 Unit Tab PO SCH (08:16)
[2016-09-23] MEDS: Calcium Carbonate/Vitamin D3 1250 MG-200 Unit Tab PO SCH ×2 (08:16→17:28)
[2016-09-23] MEDS: Acetaminophen 500 MG Tab PO PRN ×2 (10:12→20:02)
[2016-09-23] MEDS: ARIPIPRAZOLE 10 MG PO SCH (20:00)
[2016-09-24] MEDS: Omeprazole 20 MG Cap.CR PO SCH (08:22)
[2016-09-24] MEDS: Calcium Carbonate/Vitamin D3 1250 MG-200 Unit Tab PO SCH ×2 (08:22→17:30)
[2016-09-24] MEDS: Cholecalciferol (Vitamin D3) 1,000 Unit Tab PO SCH (08:22)
[2016-09-24] MEDS: Sertraline 100 MG Tab (OWN SUPPLY) PO SCH (08:22)
[2016-09-24] MEDS ORDERED: Ergocalciferol (Vitamin D2) 50,000 Unit Cap PO ONE (08:38)
--- NOTE | 2016-09-24 08:40 | PCM.SN ---
- Free Text/Narrative Note: We will order Forteo for her PTH is ok, vitamin D low at 17 she has been started on 2000 units daily we will give her a 92392 unit dose today.
[2016-09-24] MEDS: ARIPIPRAZOLE 10 MG PO SCH (22:31)
[2016-09-25] MEDS: Sertraline 100 MG Tab (OWN SUPPLY) PO SCH (11:33)
[2016-09-25] MEDS: Cholecalciferol (Vitamin D3) 1,000 Unit Tab PO SCH (11:33)
[2016-09-25] MEDS: Calcium Carbonate/Vitamin D3 1250 MG-200 Unit Tab PO SCH ×2 (11:33→17:19)
[2016-09-25] MEDS: Omeprazole 20 MG Cap.CR PO SCH (11:33)
[2016-09-25] MEDS: ARIPIPRAZOLE 10 MG PO SCH (20:45)
[2016-09-25] MEDS: Acetaminophen 500 MG Tab PO PRN (20:47)
[2016-09-26] MEDS: Omeprazole 20 MG Cap.CR PO SCH (08:31)
[2016-09-26] MEDS: Cholecalciferol (Vitamin D3) 1,000 Unit Tab PO SCH (08:31)
[2016-09-26] MEDS: Calcium Carbonate/Vitamin D3 1250 MG-200 Unit Tab PO SCH ×2 (08:31→17:00)
[2016-09-26] MEDS: Sertraline 100 MG Tab (OWN SUPPLY) PO SCH (08:32)
[2016-09-26] MEDS: ARIPIPRAZOLE 10 MG PO SCH (19:50)
[2016-09-27] MEDS: Calcium Carbonate/Vitamin D3 1250 MG-200 Unit Tab PO SCH ×2 (09:18→17:52)
[2016-09-27] MEDS: Omeprazole 20 MG Cap.CR PO SCH (09:19)
[2016-09-27] MEDS: Sertraline 100 MG Tab (OWN SUPPLY) PO SCH (09:19)
[2016-09-27] MEDS: Cholecalciferol (Vitamin D3) 1,000 Unit Tab PO SCH (09:19)
[2016-09-27] MEDS: ARIPIPRAZOLE 10 MG PO SCH ×2 (18:47→18:59)
[2016-09-28] MEDS: Cholecalciferol (Vitamin D3) 1,000 Unit Tab PO SCH (09:03)
[2016-09-28] MEDS: Sertraline 100 MG Tab (OWN SUPPLY) PO SCH (09:03)
[2016-09-28] MEDS: Calcium Carbonate/Vitamin D3 1250 MG-200 Unit Tab PO SCH ×2 (09:03→17:46)
[2016-09-28] MEDS: Omeprazole 20 MG Cap.CR PO SCH (09:03)
[2016-09-28] MEDS: ARIPIPRAZOLE 10 MG PO SCH (19:42)
[2016-09-29] MEDS: Cholecalciferol (Vitamin D3) 1,000 Unit Tab PO SCH (09:00)
[2016-09-29] MEDS: Omeprazole 20 MG Cap.CR PO SCH (09:00)
[2016-09-29] MEDS: Calcium Carbonate/Vitamin D3 1250 MG-200 Unit Tab PO SCH ×2 (09:00→19:26)
[2016-09-29] MEDS: Sertraline 100 MG Tab (OWN SUPPLY) PO SCH (09:00)
[2016-09-29] MEDS: FORTEO SUBCUT SCH (09:48)
[2016-09-29] MEDS: ARIPIPRAZOLE 10 MG PO SCH (19:27)
[2016-09-30] MEDS: Calcium Carbonate/Vitamin D3 1250 MG-200 Unit Tab PO SCH ×2 (08:44→17:32)
[2016-09-30] MEDS: Omeprazole 20 MG Cap.CR PO SCH (08:44)
[2016-09-30] MEDS: Cholecalciferol (Vitamin D3) 1,000 Unit Tab PO SCH (08:44)
[2016-09-30] MEDS: Sertraline 100 MG Tab (OWN SUPPLY) PO SCH (08:45)
[2016-09-30] MEDS: FORTEO SUBCUT SCH (08:48)
[2016-09-30] MEDS: ARIPIPRAZOLE 10 MG PO SCH (19:58)
[2016-10-01] MEDS: Cholecalciferol (Vitamin D3) 1,000 Unit Tab PO SCH (09:08)
[2016-10-01] MEDS: Sertraline 100 MG Tab (OWN SUPPLY) PO SCH (09:09)
[2016-10-01] MEDS: Omeprazole 20 MG Cap.CR PO SCH (09:09)
[2016-10-01] MEDS: Calcium Carbonate/Vitamin D3 1250 MG-200 Unit Tab PO SCH ×2 (09:09→17:31)
[2016-10-01] MEDS: FORTEO SUBCUT SCH (09:11)
[2016-10-01] MEDS: Acetaminophen 500 MG Tab PO PRN (21:04)
[2016-10-01] MEDS: ARIPIPRAZOLE 10 MG PO SCH (21:06)
[2016-10-02] MEDS: Sertraline 100 MG Tab (OWN SUPPLY) PO SCH (09:36)
[2016-10-02] MEDS: Cholecalciferol (Vitamin D3) 1,000 Unit Tab PO SCH (09:37)
[2016-10-02] MEDS: Omeprazole 20 MG Cap.CR PO SCH (09:37)
[2016-10-02] MEDS: Calcium Carbonate/Vitamin D3 1250 MG-200 Unit Tab PO SCH ×2 (09:37→17:33)
[2016-10-02] MEDS: FORTEO SUBCUT SCH (09:38)
[2016-10-02] MEDS: ARIPIPRAZOLE 10 MG PO SCH (19:27)
[2016-10-03] MEDS: Cholecalciferol (Vitamin D3) 1,000 Unit Tab PO SCH (08:59)
[2016-10-03] MEDS: Omeprazole 20 MG Cap.CR PO SCH (08:59)
[2016-10-03] MEDS: Sertraline 100 MG Tab (OWN SUPPLY) PO SCH (09:00)
[2016-10-03] MEDS: Calcium Carbonate/Vitamin D3 1250 MG-200 Unit Tab PO SCH ×2 (09:00→18:03)
[2016-10-03] MEDS: Acetaminophen 500 MG Tab PO PRN (09:01)
[2016-10-03] MEDS: FORTEO SUBCUT SCH (09:03)
[2016-10-03] MEDS: ARIPIPRAZOLE 10 MG PO SCH (20:35)
[2016-10-04] MEDS: Omeprazole 20 MG Cap.CR PO SCH (08:14)
[2016-10-04] MEDS: Sertraline 100 MG Tab (OWN SUPPLY) PO SCH (08:14)
[2016-10-04] MEDS: Calcium Carbonate/Vitamin D3 1250 MG-200 Unit Tab PO SCH ×2 (08:14→17:26)
[2016-10-04] MEDS: Cholecalciferol (Vitamin D3) 1,000 Unit Tab PO SCH (08:14)
[2016-10-04] MEDS: FORTEO SUBCUT SCH (08:18)
[2016-10-04] MEDS: ARIPIPRAZOLE 10 MG PO SCH (19:34)
[2016-10-05] MEDS: Sertraline 100 MG Tab (OWN SUPPLY) PO SCH (08:27)
[2016-10-05] MEDS: Cholecalciferol (Vitamin D3) 1,000 Unit Tab PO SCH (08:28)
[2016-10-05] MEDS: Calcium Carbonate/Vitamin D3 1250 MG-200 Unit Tab PO SCH ×2 (08:28→18:16)
[2016-10-05] MEDS: Omeprazole 20 MG Cap.CR PO SCH (08:28)
[2016-10-05] MEDS: FORTEO SUBCUT SCH (08:29)
[2016-10-05] MEDS: ARIPIPRAZOLE 10 MG PO SCH (19:32)
[2016-10-06 08:38] LABS: CALCIUM 8.9 mg/dL (8.5-10.1); CHLORIDE,CL 106 mmol/L (98-107); CREATININE 0.8 mg/dL (0.55-1.02); EST CRCL DRUG DOSING (CG) 117.23 mL/min; ESTIMATED GFR > 60; GLUCOSE RANDOM 82 mg/dL (74-106)
[2016-10-06 08:39] LABS: INR 2.2 (2.0-3.5); PROTHROMBIN TIME 25.3 SEC (10.0-12.8)
[2016-10-06] MEDS: Cholecalciferol (Vitamin D3) 1,000 Unit Tab PO SCH (09:05)
[2016-10-06] MEDS: Sertraline 100 MG Tab (OWN SUPPLY) PO SCH (09:05)
[2016-10-06] MEDS: Calcium Carbonate/Vitamin D3 1250 MG-200 Unit Tab PO SCH ×2 (09:05→17:06)
[2016-10-06] MEDS: Omeprazole 20 MG Cap.CR PO SCH (09:05)
[2016-10-06] MEDS: FORTEO SUBCUT SCH (09:07)
[2016-10-06] MEDS: ARIPIPRAZOLE 10 MG PO SCH ×2 (17:07→19:07)
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
[2016-10-07] MEDS: Sertraline 100 MG Tab (OWN SUPPLY) PO SCH (08:55)
[2016-10-07] MEDS: Calcium Carbonate/Vitamin D3 1250 MG-200 Unit Tab PO SCH ×2 (08:57→18:17)
[2016-10-07] MEDS: Omeprazole 20 MG Cap.CR PO SCH (08:57)
[2016-10-07] MEDS: Cholecalciferol (Vitamin D3) 1,000 Unit Tab PO SCH (08:57)
[2016-10-07] MEDS: FORTEO SUBCUT SCH (08:58)
[2016-10-07] MEDS: ARIPIPRAZOLE 10 MG PO SCH (19:16)
[2016-10-08] MEDS: FORTEO SUBCUT SCH (08:25)
[2016-10-08] MEDS: Cholecalciferol (Vitamin D3) 1,000 Unit Tab PO SCH (08:26)
[2016-10-08] MEDS: Sertraline 100 MG Tab (OWN SUPPLY) PO SCH (08:26)
[2016-10-08] MEDS: Omeprazole 20 MG Cap.CR PO SCH (08:26)
[2016-10-08] MEDS: Calcium Carbonate/Vitamin D3 1250 MG-200 Unit Tab PO SCH ×2 (08:26→17:45)
[2016-10-08] MEDS: ARIPIPRAZOLE 10 MG PO SCH (19:59)
[2016-10-09] MEDS: Sertraline 100 MG Tab (OWN SUPPLY) PO SCH (09:33)
[2016-10-09] MEDS: Omeprazole 20 MG Cap.CR PO SCH (09:35)
[2016-10-09] MEDS: Calcium Carbonate/Vitamin D3 1250 MG-200 Unit Tab PO SCH ×2 (09:35→18:31)
[2016-10-09] MEDS: Cholecalciferol (Vitamin D3) 1,000 Unit Tab PO SCH (09:35)
[2016-10-09] MEDS: FORTEO SUBCUT SCH (09:37)
[2016-10-09] MEDS: Acetaminophen 500 MG Tab PO PRN (09:37)
[2016-10-09] MEDS: ARIPIPRAZOLE 10 MG PO SCH (20:45)
[2016-10-10] MEDS: FORTEO SUBCUT SCH (08:47)
[2016-10-10] MEDS: Omeprazole 20 MG Cap.CR PO SCH (08:48)
[2016-10-10] MEDS: Sertraline 100 MG Tab (OWN SUPPLY) PO SCH (08:48)
[2016-10-10] MEDS: Cholecalciferol (Vitamin D3) 1,000 Unit Tab PO SCH (08:48)
[2016-10-10] MEDS: Calcium Carbonate/Vitamin D3 1250 MG-200 Unit Tab PO SCH ×2 (08:48→17:42)
[2016-10-10] MEDS: ARIPIPRAZOLE 10 MG PO SCH (19:29)
[2016-10-11] MEDS: Sertraline 100 MG Tab (OWN SUPPLY) PO SCH (08:33)
[2016-10-11] MEDS: Omeprazole 20 MG Cap.CR PO SCH (08:33)
[2016-10-11] MEDS: Cholecalciferol (Vitamin D3) 1,000 Unit Tab PO SCH (08:33)
[2016-10-11] MEDS: Calcium Carbonate/Vitamin D3 1250 MG-200 Unit Tab PO SCH ×2 (08:33→17:46)
[2016-10-11] MEDS: FORTEO SUBCUT SCH (08:34)
[2016-10-11] MEDS: ARIPIPRAZOLE 10 MG PO SCH (19:29)
[2016-10-12] MEDS: Cholecalciferol (Vitamin D3) 1,000 Unit Tab PO SCH (08:33)
[2016-10-12] MEDS: Omeprazole 20 MG Cap.CR PO SCH (08:33)
[2016-10-12] MEDS: Calcium Carbonate/Vitamin D3 1250 MG-200 Unit Tab PO SCH ×2 (08:33→17:50)
[2016-10-12] MEDS: Sertraline 100 MG Tab (OWN SUPPLY) PO SCH (08:33)
[2016-10-12] MEDS: FORTEO SUBCUT SCH (08:36)
[2016-10-12] MEDS: ARIPIPRAZOLE 10 MG PO SCH (19:23)
--- NOTE | 2016-10-12 21:43 | PCM.SN ---
- Free Text/Narrative Note: CT's done today and sent to [facility] reviewed by surgeon and nursing received word that she may begin weight bearing. Hopefully she will progress with PT and be d/c home soon. Coumadin discontinued.
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
[2016-10-13] MEDS: Sertraline 100 MG Tab (OWN SUPPLY) PO SCH (09:24)
[2016-10-13] MEDS: Calcium Carbonate/Vitamin D3 1250 MG-200 Unit Tab PO SCH ×2 (09:24→17:09)
[2016-10-13] MEDS: Cholecalciferol (Vitamin D3) 1,000 Unit Tab PO SCH (09:24)
[2016-10-13] MEDS: Docusate Sodium 100 MG Cap PO SCH ×3 (09:24→21:03)
[2016-10-13] MEDS: FORTEO SUBCUT SCH (09:25)
[2016-10-13] MEDS: ARIPIPRAZOLE 10 MG PO SCH (21:02)
[2016-10-13] MEDS: Acetaminophen 500 MG Tab PO PRN (21:10)
[2016-10-14] MEDS: Cholecalciferol (Vitamin D3) 1,000 Unit Tab PO SCH (09:05)
[2016-10-14] MEDS: Calcium Carbonate/Vitamin D3 1250 MG-200 Unit Tab PO SCH ×2 (09:05→17:42)
[2016-10-14] MEDS: Sertraline 100 MG Tab (OWN SUPPLY) PO SCH (09:05)
[2016-10-14] MEDS: Docusate Sodium 100 MG Cap PO SCH ×2 (09:05→20:21)
[2016-10-14] MEDS: FORTEO SUBCUT SCH (09:08)
[2016-10-14] MEDS: ARIPIPRAZOLE 10 MG PO SCH (20:20)
[2016-10-14] MEDS: Acetaminophen 500 MG Tab PO PRN (20:23)
[2016-10-15 06:22] VITALS: BP 127/68
[2016-10-15] MEDS: Sertraline 100 MG Tab (OWN SUPPLY) PO SCH (08:42)
[2016-10-15] MEDS: FORTEO SUBCUT SCH (08:43)
[2016-10-15] MEDS: Cholecalciferol (Vitamin D3) 1,000 Unit Tab PO SCH (08:43)
[2016-10-15] MEDS: Calcium Carbonate/Vitamin D3 1250 MG-200 Unit Tab PO SCH (08:43)
[2016-10-15] MEDS: Docusate Sodium 100 MG Cap PO SCH (08:43)
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
== END 2016-10-15 11:10 | disposition home health service (06) | DRG 536 ==
LOC: VM.MS 11:38
PROVIDERS: ADMIT Internal Medicine; ATTEND Internal Medicine
DX: S32.402A Unspecified fracture of left acetabulum, initial encounter for closed fracture (principal); T84.69XA Infection and inflammatory reaction due to internal fixation device of other site, initial encounter; Z87.891 Personal history of nicotine dependence; F32.9 Major depressive disorder, single episode, unspecified; G31.84 Mild cognitive impairment of uncertain or unknown etiology; E66.01 Morbid (severe) obesity due to excess calories; M25.562 Pain in left knee; B95.61 Methicillin susceptible Staphylococcus aureus infection as the cause of diseases classified elsewhere; N91.2 Amenorrhea, unspecified; Z96.652 Presence of left artificial knee joint
CPT/HCPCS: 36415; 72170; 72190; 72192; 73560-LT; 80048; 80053; 81001; 81025; 82306; 83970; 85025; 85610; 85652; 86140; 87070; 87077; 87147; 87186; 87205; 97001-GP; 97110-GP; 97116-GP; 97164-GP; 97530-GP; A9270-GY; J1650

== ENCOUNTER 2019-06-10 14:00 | Emergency (ER) | payer MEDICAID, OTHER ==
[2019-06-10] MEDS ORDERED: Acetaminophen/HYDROcodone 325-10 MG Tab PO ONE (14:15)
[2019-06-10 14:32] VITALS: BP 124/64
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
[2019-06-10 14:56] LABS: ANION GAP 11.4 mmol/L (10-20); CHLORIDE,CL 106 mmol/L (98-107); SODIUM,NA 142 mmol/L (136-145)
[2019-06-10] MEDS ORDERED: Take Home: Acetaminophen/Codeine 300 MG/30 MG, 5 Tab Pack PO ONE (14:59)
[2019-06-10] MEDS ORDERED: Take Home: predniSONE 20 MG, 2 Tab Pack PO ONE (14:59)
--- NOTE | 2019-06-10 15:06 | CR ---
[id number] RAD/RAD Knee Left 3V EXAM: 3 VIEWS LEFT KNEE. INDICATION: ACUTE ON CHRONIC KNEE PAIN. COMPARISON: None. DISCUSSION: No fracture, dislocation or other osseous abnormality. Small left knee joint effusion. IMPRESSION: 1. Small left knee joint effusion. Kory Oralndo DO 06/10/19 [id number] Thank you for allowing us to participate in the care of your patient.
== END 2019-06-10 15:22 | disposition home or self-care (01) ==
LOC: VM.ED 14:00
DX: S83.92XA Sprain of unspecified site of left knee, initial encounter (principal); Z91.040 Latex allergy status; Z88.5 Allergy status to narcotic agent; Z88.0 Allergy status to penicillin; Z88.8 Allergy status to other drugs, medicaments and biological substances; Z79.899 Other long term (current) drug therapy; X50.9XXA Other and unspecified overexertion or strenuous movements or postures, initial encounter; Y99.0 Civilian activity done for income or pay
CPT/HCPCS: 36415; 73562-LT; 80053; 84550; 85025; 86140; 99283; 99284-GF; A9270-GY

== ENCOUNTER 2020-02-03 15:10 | Emergency (ER) | payer MEDICAID, OTHER ==
[2020-02-03] MEDS ORDERED: fentaNYL 100 MCG/2 ML SDV IVPUSH ONE (15:20)
[2020-02-03] MEDS ORDERED: Diphtheria,Pertussis(Acell),Tetanus Vaccine 0.5 ML Syringe IM ONE (15:21)
--- NOTE | 2020-02-03 15:29 | EDM.PDOC ---
ED HPI GENERAL MEDICAL PROBLEM - General Chief Complaint: Upper Extremity Injury/Pain Stated Complaint: LACERATION ON FINGER Time Seen by Provider: 02/03/20 15:15 Source of Information: Reports: Patient, Family History Limitations: Reports: No Limitations - History of Present Illness INITIAL COMMENTS - FREE TEXT/NARRATIVE: Patient presents to ER with amputation to the distal tip of her 4th digit of her left hand. Was chopping wood and caught her finger between the chopper and the log. Did apply pressure to the area to control the bleeding. Does not have the finger tip with her. Unsure if ever had a tetanus shot in the past. Onset: Today, Sudden Duration: Minutes: Location: Reports: Upper Extremity, Left Quality: Reports: Sharp, Throbbing Severity: Severe Associated Symptoms: Reports: No Other Symptoms - Related Data Allergies Allergy/AdvReac Type Severity Reaction Status Date / Time codeine Allergy Hives Verified 02/03/20 15:42 latex Allergy Rash Verified 02/03/20 15:42 Penicillins Allergy Difficulty Verified 02/03/20 15:42 Breathing albuterol AdvReac Seizure Verified 02/03/20 15:42 cefaclor [From Ceclor] AdvReac Nausea and Verified 02/03/20 15:42 Vomiting Home Meds: Home Meds . 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: , Other (See Below) Other MEDICAL OFFICE ASSISTANT INSTRUCTOR History: x 1 Musculoskeletal History: Reports: Fracture Psychiatric History: Reports: Learning Disability - Past Surgical History HEENT Surgical History: Reports: Other (See Below) Female Surgical History: Reports: Section Musculoskeletal Surgical History: Reports: Other (See Below) Social & Family History - Family History Family Medical History: Noncontributory - Living Situation & Occupation Living situation: Reports: with Family Review of Systems - Review of Systems Review Of Systems: See Below Constitutional: Reports: No Symptoms Eyes: Reports: No Symptoms Ears: Reports: No Symptoms Nose: Reports: No Symptoms Mouth/Throat: Reports: No Symptoms Respiratory: Reports: No Symptoms Cardiovascular: Reports: No Symptoms GI/Abdominal: Reports: No Symptoms Musculoskeletal: Reports: Hand Pain Skin: Reports: Wound, Other (amputation) Neurological: Reports: No Symptoms ED EXAM, GENERAL - Physical Exam Exam: See Below Exam Limited By: No Limitations General Appearance: Alert, WD/WN, Mild Distress Extremities: Other (complete amputation of distal tip of finger with open wound/ bone exposed. ) Neurological: Alert, Oriented Course - Vital Signs Last Recorded V/S: Last Vital Signs Temp 97.5 F 02/03/20 15:10 Pulse 91 02/03/20 15:10 Resp 16 02/03/20 15:10 BP 140/91 H 02/03/20 15:10 Pulse Ox 99 02/03/20 15:10 - Orders/Labs/Meds Orders: Active Orders 24 hr Category Date Time Status Vaccines to be Administered [RC] PER UNIT ROUTINE Care 02/03/20 15:22 Ordered Meds: Medications Discontinued Medications Generic Name Dose Route Start Last Admin Trade Name Freq PRN Reason Stop Dose Admin Ceftriaxone Sodium 2 gm 02/03/20 16:00 02/03/20 16:09 Rocephin IVPUSH 02/03/20 16:01 2 gm STAT ONE Administration Diphtheria/Tetanus/Acell Pertussis 0.5 ml 02/03/20 15:21 02/03/20 15:30 Adacel IM 02/03/20 15:22 0.5 ml .ONCE ONE Administration Fentanyl 50 mcg 02/03/20 15:20 02/03/20 15:29 Sublimaze IVPUSH 02/03/20 15:21 50 mcg ONETIME ONE Administration Oxycodone/Acetaminophen 1 packet 02/03/20 16:05 Take Home: Acetamin/Oxycodon 325-5 Mg, 5 Pack PO 02/03/20 16:06 ONETIME ONE - Re-Assessments/Exams Free Text/Narrative Re-Assessment/Exam: 02/03/20 1600- Xrays noted amputation of only distal tip of phalanx. Contacted [facility] and spoke with ledy Marquez pre certification specialist. Recommend IV Rocephin, bandage and present to see her in clinic in am in [place] for more definitive treatment of injury as needed. Rocephin 2 gm IV given. Patient has historically taken oxycodone and hydrocodone without any interactions in the past. Will send home with Percocet for pain control tonight. STay NPO after midnight until seen by specialist. Patient verbalizes understanding. Departure - Departure Time of Disposition: 16:16 Disposition: Home, Self-Care 01 Condition: Fair Clinical Impression: Amputation of finger tip Qualifiers: Encounter type: initial encounter Qualified Code(s): S68.119A - Complete traumatic metacarpophalangeal amputation of unspecified finger, initial encounter - Discharge Information *PRESCRIPTION DRUG MONITORING PROGRAM REVIEWED*: No *COPY OF PRESCRIPTION DRUG MONITORING REPORT IN PATIENT [place]: No Forms: ED Department Discharge Additional Instructions: 1. Keep hand elevated 2. Keep bandage intact, may reinforce with gauze if bleeds through 3. Percocet 1 tab every 4 hours as needed for pain 4. Present to see Dr. Schaffer at [facility], 1st floor, at 830 am tomorrow 5. Call with any questions or concerns. Sepsis Event Note - Focused Exam Vital Signs: Vital Signs Temp Pulse Resp BP Pulse Ox 02/03/20 15:10 97.5 F 91 16 140/91 H 99 Date Exam was Performed: 02/03/20 Time Exam was Performed: 16:14 - My Orders Last 24 Hours: My Active Orders 02/03/20 15:22 Vaccines to be Administered [RC] PER UNIT ROUTINE - Assessment/Plan Last 24 Hours: My Active Orders 02/03/20 15:22 Vaccines to be Administered [RC] PER UNIT ROUTINE
[2020-02-03 15:48] VITALS: BP 140/91; PULSE 91
[2020-02-03] MEDS ORDERED: cefTRIAXone 2 GM Vial IVPUSH ONE (16:00)
[2020-02-03] MEDS ORDERED: Take Home: Acetaminophen/oxyCODONE 325-5 MG, 5 Tab Pack PO ONE (16:05)
--- NOTE | 2020-02-03 16:13 | CR ---
[id number] RAD/RAD Fingers Left EXAM: 3 VIEWS LEFT HAND. INDICATION: TRAUMA. COMPARISON: None. DISCUSSION: There has been amputation of the distal tuft of the 4th digit. There is associated soft tissue defect with multiple bony fragments at the stump. No other fractures are identified. IMPRESSION: 1. As above. Kory Orlando DO 02/03/20 [id number] Thank you for allowing us to participate in the care of your patient.
== END 2020-02-03 16:40 | disposition home or self-care (01) ==
LOC: VM.ED 15:10
DX: S68.125A Partial traumatic metacarpophalangeal amputation of left ring finger, initial encounter (principal); Z23 Encounter for immunization; Z88.5 Allergy status to narcotic agent; Z88.0 Allergy status to penicillin; Z88.8 Allergy status to other drugs, medicaments and biological substances; Z91.040 Latex allergy status; W23.0XXA Caught, crushed, jammed, or pinched between moving objects, initial encounter
CPT/HCPCS: 73140; 90471; 90715; 96374; 96375; 99283; A9270; J0696; J3010

== ENCOUNTER 2020-08-22 02:19 | Emergency (ER) | payer MEDICARE, MEDICAID ==
[2020-08-22 02:24] VITALS: BP 148/78; PULSE 99
[2020-08-22] MEDS ORDERED: Acetaminophen 500 MG Tab PO ONE (03:37)
--- NOTE | 2020-08-22 03:37 | EDM.PDOC ---
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 This patient is 2 para 1, 35 weeks gestation. [place] on hour prior to presentation had a sudden onset of pain in the umbilical region down to her symphysis pubis that is a constant shooting pain. It does not wax and wane. It is not cyclical. Does not get worse with movement. She has had no vaginal discharge drainage vaginal bleeding. The pain radiates into her left hip. She does have a history of a left hip fracture. She feels normal movement. She has no nausea or vomiting. No hematuria dysuria or urinary frequency. No black or tarry stools. She has been having normal bowel movements. There is no shortness of breath difficulty breathing cough or congestion. No fever no chills. No Covid exposure no Covid symptoms. She has had no leakage of fluid or vaginal discharge. Abdomen Pain Score (Numeric/FACES): 10 - Related Data Allergies Allergy/AdvReac Type Severity Reaction Status Date / Time codeine Allergy Hives Verified 08/22/20 02:20 gluten Allergy Vomiting Verified 08/22/20 02:20 latex Allergy Rash Verified 08/22/20 02:20 Penicillins Allergy Difficulty Verified 08/22/20 02:20 Breathing albuterol AdvReac Seizure Verified 08/22/20 02:20 cefaclor [From Ceclor] AdvReac Nausea and Verified 08/22/20 02:20 Vomiting Home Meds: Home Meds Omeprazole 20 mg PO DAILY 08/22/20 [History] Pnv,Calcium 72/Iron/Folic Acid [ Vitamin Plus Low Iron] 1 tab PO DAILY 08/22/20 [History] Sertraline [Zoloft] 50 mg PO DAILY 08/22/20 [History] busPIRone HCl [Buspirone HCl] 1 tab PO DAILY 08/22/20 [History] Past Medical History HEENT History: Reports: Other (See Below) Other HEENT History: hypermetropia Respiratory History: Reports: Asthma Gastrointestinal History: Reports: GERD 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: Reports: , Other (See Below) Other 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: x 1 Musculoskeletal History: Reports: Fracture Psychiatric History: Reports: Learning Disability - Past Surgical History HEENT Surgical History: Reports: Other (See Below) Female Surgical History: Reports: Section Social & Family History - Family History Family Medical History: No Pertinent Family History - Tobacco Use Tobacco Use Status *Q: Former Tobacco User Used Tobacco, but Quit: Yes Month/Year Tobacco Last Used: December 2019 - Living Situation & Occupation Living situation: Reports: with Family ED ROS GENERAL - Review of Systems Review Of Systems: Comprehensive ROS is negative, except as noted in HPI. ED EXAM, GI/ABD - Physical Exam Exam: See Below Exam Limited By: No Limitations General Appearance: Alert, WD/WN, No Apparent Distress, Obese (morbidly) Eyes: Bilateral: EOMI Ears: Normal External Exam Nose: Normal Inspection Throat/Mouth: Normal Inspection Head: Atraumatic, Normocephalic Neck: Normal Inspection, Supple Respiratory/Chest: No Respiratory Distress, Lungs Clear, Normal Breath Sounds, Chest Non-Tender Cardiovascular: Normal Peripheral Pulses, Regular Rate, Rhythm GI/Abdominal Exam: Normal Bowel Sounds, Soft, Non-Tender, No Organomegaly (Female) Exam: Normal External Exam, Heart Tones (140s), Fundal Height (Approximately 12 cm above the umbilicus.), Other (I am unable to palpate any uterine contractions we do not have a toco meter for evaluation.). No: Cervical Dilatation (Cervix is long thick no dilation), Uterine Tenderness, Vaginal Bleeding, Vaginal Discharge, Vaginal Lesions, Vaginal Tears Rectal (Female) Exam: Deferred Back Exam: Normal Inspection, Full Range of Motion Extremities: Normal Inspection, Normal Range of Motion, Non-Tender, Normal Capillary Refill Neurological: Alert, Oriented, Normal Cognition, Normal Gait, No Motor/Sensory Deficits Psychiatric: Normal Affect, Normal Mood Skin Exam: Warm, Dry, Intact, Normal Color, No Rash Course - Vital Signs Last Recorded V/S: Last Vital Signs Temp 97.1 F 08/22/20 02:22 Pulse 99 08/22/20 02:22 Resp 16 08/22/20 02:22 BP 148/78 H 08/22/20 02:22 Pulse Ox 98 08/22/20 02:22 - Orders/Labs/Meds Labs: Laboratory Tests 08/22/20 08/22/20 08/22/20 Range/Units 03:28 03:35 03:35 WBC 13.1 H (4.0-10.0) x10^3/uL RBC 3.53 L (4.00-5.50) x10^6/uL Hgb 11.0 L D (12.0-16.0) g/dL Hct 34.1 (33.0-47.0) % MCV 96.6 H (78.0-93.0) fL MCH 31.2 (26.0-32.0) pg MCHC 32.3 (32.0-36.0) g/dL RDW Coeff of Shreya 13.8 (10.0-15.0) % Plt Count 263 (130-400) x10^3/uL Neut % (Auto) 78.7 (50.0-80.0) % Lymph % (Auto) 13.8 L (25.0-50.0) % [place] % (Auto) 6.1 (2.0-11.0) % Eos % (Auto) 1.2 (0.0-4.0) % Baso % (Auto) 0.2 (0.2-1.2) % Sodium 141 (136-145) mmol/L Potassium 4.2 (3.5-5.1) mmol/L Chloride 105 (98-107) mmol/L Carbon Dioxide 28 (21-32) mmol/L Anion Gap 12.2 (10-20) mmol/L BUN 11 (7-18) mg/dL Creatinine 0.7 (0.55-1.02) mg/dL Est Cr Clr Drug Dosing TNP Estimated GFR (MDRD) > 60 Glucose 90 (74-106) mg/dL Calcium 8.9 (8.5-10.1) mg/dL Urine Color Yellow (YELLOW) Urine Appearance Clear (CLEAR) Urine pH 6.5 (5.0-8.0) Ur Specific [place] 1.025 Urine Protein Trace H (NEGATIVE) mg/dL Urine Glucose (UA) Negative (NEGATIVE) mg/dL Urine Ketones Negative (NEGATIVE) mg/dL Urine Occult Blood Negative (NEGATIVE) Urine Nitrite Negative (NEGATIVE) Urine Bilirubin Small H (NEGATIVE) Urine Urobilinogen 1.0 (0.2) EU/dL Ur Leukocyte Esterase Negative (NEGATIVE) Urine RBC 0-5 (NOT SEEN) /HPF Urine WBC 0-5 (NOT SEEN) /HPF Ur Squamous Epith Cells Few H (NEGATIVE) /HPF Urine Bacteria Rare (NEGATIVE) /HPF Urine Mucus Rare H (NEGATIVE) /LPF Meds: Medications Discontinued Medications Generic Name Dose Route Start Last Admin Trade Name Earl PRN Reason Stop Dose Admin Acetaminophen 1,000 mg 08/22/20 03:37 08/22/20 03:43 Tylenol Extra Strength PO 08/22/20 03:38 1,000 mg ONETIME ONE Administration - Re-Assessments/Exams Free Text/Narrative Re-Assessment/Exam: 08/22/20 03:43 We do not have a toco meter heart tones are appropriate in the 140s. Called and spoke with Dr. Dill the 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 AGENT doorperson at [facility]. He is unconcerned for the presence of active labor. Most likely ligament pain. She does have a non-stress test today in [place] as well as a glucose tolerance test today in [place]. [place] guidance is to discharge home and have her rest until her appointment. Make position changes slowly. Heat or ICe and Tylenol. Departure - Departure Time of Disposition: 03:51 Disposition: Home, Self-Care 01 Clinical Impression: 35 weeks gestation of Abdominal pain Qualifiers: Abdominal location: lower abdomen, unspecified Qualified Code(s): R10.30 - Lower abdominal pain, unspecified - Discharge Information Referrals: PCP,Unobtain [Ordering Only Provider] - Forms: ED Department Discharge Additional Instructions: Tylenol as needed for pain. Home rest as much as possible. Make position changes slowly. Heat pack or ice to the area. Follow up with OB in [place] today as planned. Return if any new or worsening symptoms. Sepsis Event Note (ED) - Evaluation Sepsis Screening Result: No Definite Risk
[2020-08-22 03:51] LABS: ANION GAP 12.2 mmol/L (10-20); CHLORIDE,CL 105 mmol/L (98-107); SODIUM,NA 141 mmol/L (136-145)
== END 2020-08-22 03:57 | disposition home or self-care (01) ==
LOC: VM.ED 02:19
DX: O99.891 Other specified diseases and conditions complicating pregnancy (principal); R10.30 Lower abdominal pain, unspecified; O99.513 Diseases of the respiratory system complicating pregnancy, third trimester; J45.909 Unspecified asthma, uncomplicated; O99.613 Diseases of the digestive system complicating pregnancy, third trimester; K21.9 Gastro-esophageal reflux disease without esophagitis; Z87.891 Personal history of nicotine dependence; Z88.8 Allergy status to other drugs, medicaments and biological substances; Z88.5 Allergy status to narcotic agent; Z88.0 Allergy status to penicillin; Z91.040 Latex allergy status; Z91.018 Allergy to other foods; Z79.899 Other long term (current) drug therapy; Z3A.35 35 weeks gestation of pregnancy
CPT/HCPCS: 36415; 80048; 81001; 85025; 99284; A9270

== ENCOUNTER 2022-06-20 23:30 | Emergency (ER) | payer MEDICARE, MEDICAID ==
[2022-06-20 23:51] VITALS: BP 118/72; PULSE 96
[2022-06-21] MEDS ORDERED: methylPREDNISolone Sodium Succinate 125 MG/2 ML SDV IM ONE (01:34)
== END 2022-06-21 01:42 | disposition home or self-care (01) ==
LOC: VM.ED 23:30
DX: J40 Bronchitis, not specified as acute or chronic (principal); J30.9 Allergic rhinitis, unspecified; K21.9 Gastro-esophageal reflux disease without esophagitis; Z88.5 Allergy status to narcotic agent; Z91.040 Latex allergy status; Z88.0 Allergy status to penicillin; Z91.018 Allergy to other foods; Z79.899 Other long term (current) drug therapy
CPT/HCPCS: 71046; 96372; 99283; J2930

== ENCOUNTER 2022-12-27 23:15 | Emergency (ER) | payer MEDICARE, MEDICAID ==
[2022-12-28 00:32] LABS: BARBITURATE SCREEN,URINE NEGATIVE (NEGATIVE); BENZODIAZEPINES SCREEN,URINE NEGATIVE (NEGATIVE); METHAMPHETAMINE SCREEN, URINE NEGATIVE (NEGATIVE); THC SCREEN,URINE 50 NG/ML NEGATIVE (NEGATIVE)
[2022-12-28 00:33] LABS: BUPRENORPHINE SCREEN,URINE NEGATIVE (NEGATIVE)
[2022-12-28 00:38] LABS: CHLORIDE,CL 105 mmol/L (98-107); SODIUM,NA 141 mmol/L (136-145)
[2022-12-28 00:39] LABS: ACETAMINOPHEN 0 ug/ml (10-30); ANION GAP 12.8 mmol/L (5-15); ESTIMATED GFR 104 mL/min (>=60)
[2022-12-28 01:31] VITALS: BP 150/82; PULSE 88
== END 2022-12-28 01:30 | disposition home or self-care (01) ==
LOC: VM.ED 23:15
DX: T43.591A Poisoning by other antipsychotics and neuroleptics, accidental (unintentional), initial encounter (principal); R45.851 Suicidal ideations; J45.909 Unspecified asthma, uncomplicated; K21.9 Gastro-esophageal reflux disease without esophagitis; Z88.1 Allergy status to other antibiotic agents; Z88.8 Allergy status to other drugs, medicaments and biological substances; Z88.5 Allergy status to narcotic agent; Z91.040 Latex allergy status; Z88.0 Allergy status to penicillin; Z91.018 Allergy to other foods; Z79.899 Other long term (current) drug therapy; Z98.890 Other specified postprocedural states
CPT/HCPCS: 36415; 80053; 80143; 80179; 80305-QW; 80307; 81001; 85025; 87086; 93005; 93010; 99284; 99285

== ENCOUNTER 2023-02-05 12:42 | Emergency (ER) | payer MEDICARE, MEDICAID ==
[2023-02-05] MEDS ORDERED: Ciprofloxacin 0.3% Ophth Soln 2.5 ML Bottle EARLF ONE (12:49)
[2023-02-05] MEDS ORDERED: Take Home: Clindamycin HCl 150 MG Cap, 6 Cap Pack PO ONE (12:52)
[2023-02-05 13:54] VITALS: BP 146/88; PULSE 87
== END 2023-02-05 13:09 | disposition home or self-care (01) ==
LOC: VM.ED 12:42
DX: H66.012 Acute suppurative otitis media with spontaneous rupture of ear drum, left ear (principal); J45.909 Unspecified asthma, uncomplicated; K21.9 Gastro-esophageal reflux disease without esophagitis; Z88.5 Allergy status to narcotic agent; Z91.018 Allergy to other foods; Z91.040 Latex allergy status; Z88.0 Allergy status to penicillin; Z79.899 Other long term (current) drug therapy; Z72.0 Tobacco use
CPT/HCPCS: 99282; 99283; A9270-GY

== ENCOUNTER 2024-05-27 00:29 | Emergency (ER) | payer MEDICARE, MEDICAID ==
[2024-05-27 00:46] VITALS: BP 127/75
[2024-05-27] MEDS: Ipratropium 0.02% 0.5 MG/2.5 ML Neb Soln NEB ONE (01:03)
[2024-05-27 01:21] LABS: CORONAVIRUS COVID-19 NAA NEGATIVE (NEGATIVE)
[2024-05-27 01:22] LABS: INFLUENZA A NAA NEGATIVE (NEGATIVE); INFLUENZA B NAA NEGATIVE (NEGATIVE); RESPIRATORY SYNCYTIAL VIR NAA NEGATIVE (NEGATIVE)
[2024-05-27 01:52] VITALS: PULSE 97
[2024-05-27] MEDS: predniSONE 20 MG Tab PO ONE (02:09)
[2024-05-27] MEDS: Take Home: predniSONE 20 MG, 2 Tab Pack PO ONE (02:09)
== END 2024-05-27 02:15 | disposition home or self-care (01) ==
LOC: VM.ED 00:29
DX: J45.901 Unspecified asthma with (acute) exacerbation (principal); K21.9 Gastro-esophageal reflux disease without esophagitis; E66.9 Obesity, unspecified; F17.210 Nicotine dependence, cigarettes, uncomplicated; Z68.44 Body mass index [BMI] 60.0-69.9, adult; Z88.0 Allergy status to penicillin; Z88.5 Allergy status to narcotic agent; Z91.040 Latex allergy status; Z91.018 Allergy to other foods; Z88.8 Allergy status to other drugs, medicaments and biological substances; Z79.899 Other long term (current) drug therapy
CPT/HCPCS: 0241U; 71045; 99283; 99285; J7512; J3490

== ENCOUNTER 2024-07-01 17:56 | Emergency (ER) | payer MEDICARE, MEDICAID ==
[2024-07-01] MEDS: predniSONE 20 MG Tab PO ONE (19:08)
[2024-07-01 19:19] VITALS: BP 114/73; PULSE 81
== END 2024-07-01 19:16 | disposition home or self-care (01) ==
LOC: VM.ED 17:56
DX: S50.862A Insect bite (nonvenomous) of left forearm, initial encounter (principal); J45.909 Unspecified asthma, uncomplicated; K21.9 Gastro-esophageal reflux disease without esophagitis; E66.9 Obesity, unspecified; Z79.899 Other long term (current) drug therapy; Z88.5 Allergy status to narcotic agent; Z91.018 Allergy to other foods; Z91.040 Latex allergy status; Z88.0 Allergy status to penicillin; Z88.9 Allergy status to unspecified drugs, medicaments and biological substances; Z88.1 Allergy status to other antibiotic agents; W57.XXXA Bitten or stung by nonvenomous insect and other nonvenomous arthropods, initial encounter
CPT/HCPCS: 99282; 99283; J7512